=== PATIENT | female | born 1980 | race African-American/Black ===

== ENCOUNTER 2020-01-26 13:20 | Emergency (ER) | payer MEDICAID, SELFPAY ==
[2020-01-26 13:28] VITALS: BP 127/82; PULSE 113; RESP 18; TEMP 37.1; O2SAT 100
[2020-01-26 13:42] LABS: Basophils Absolute Auto 0.1 K/mm3 (0.0-0.1); Basophils Percent Auto 0.9 % (0.2-1.2); Eosinophils Absolute Auto 0.1 K/mm3 (0-0.3); Eosinophils Percent Auto 0.6 % (0-4.4); Hematocrit 45.5 % (37.0-47.0); Immature Granulocyte Absolute 0.03 K/mm3 (0.00-0.031); Immature Granulocyte Percent A 0.2 % (0-0.5); Lymphocytes Absolute Auto 4.97 K/mm3 (0.9-3.2); Lymphocytes Percent Auto 37.1 % (18.3-44.2); Mean Corpuscular Hemoglobin 28.9 pg (26-34); Mean Corpuscular Volume 87.7 fl (80-100); Mean Platelet Volume 9.8 fl (7.4-10.4); Monocytes Absolute Auto 0.6 K/mm3 (0.1-0.6); Monocytes Percent Auto 4.7 % (2.6-8.5); Neutrophils Absolute Auto 7.6 K/mm3 (1.3-6.7); Neutrophils Percent Auto 56.5 % (45.5-73.1); Platelet Count Result 363 k/mm3 (150-375); Red Blood Count 5.19 M/mm3 (4.2-5.4); Red Cell Distribution Width 13.4 % (11.5-14.5); White Blood Count 13.4 K/mm3 (4.5-10.0)
[2020-01-26 13:54] LABS: Alanine Aminotransferase 32 U/L (4-35); Albumin Level 4.5 g/dL (3.5-5.1); Alkaline Phosphatase 97 U/L (38-126); Aspartate Amino Transferase 30 U/L (14-36); Bilirubin,Total 0.4 mg/dL (0.2-1.3); Blood Urea Nitrogen 23 mg/dL (7-17); Calcium 8.7 mg/dL (8.4-10.2); Carbon Dioxide 21 mmol/L (22-30); Chloride 103 mmol/L (98-107); Estimated CRCL calculation 59 ml/min; Estimated Glomerular Filt Rate > 60; Glucose 136 mg/dL (65-105); Lipase 75 U/L (23-300); Potassium 4.6 mmol/L (3.4-5.0); Sodium 141 mmol/L (137-145)
--- NOTE | 2020-01-26 14:06 | ED.ABDPAIN ---
HPI - Abdominal Pain General Chief Complaint: Abdominal Pain Stated Complaint: abd pain r/t chronic pancreatitis Time Seen by Provider: 01/26/20 13:53 Source: patient and RN notes reviewed Mode of arrival: ambulatory Limitations: no limitations History of Present Illness HPI narrative: A 39 y/o female presents to the ED with constant epigastric ABD pain for the past 1.5 weeks. She states that she tried to get ahold of her PCP, Dr. Barajas, last week to get her pain medication refilled but that he was out of town. She notes that she called them again today and was told that the doctor might just be behind on his prescriptions , so she decided to come to the ED. She reports that the pain radiates into her back. She denies any diarrhea, fevers, chills, SOB, or CP. MD elicited complaint: abdominal pain Pertinent past history: other (pancreatitis) Onset (ago): week(s) (1.5) Pain Consistency: constant Location: epigastric Radiation: back Associated symptoms: denies other symptoms Related Data Allergies Allergy/AdvReac Type Severity Reaction Status Date / Time No Known Allergies Allergy Unknown Verified 09/23/19 03:22 No Known Allergies Allergy Uncoded 09/23/19 03:22 Review of Systems Review of Systems: All systems reviewed & are unremarkable except as noted in HPI and below Constitutional: Constitutional: Denies chills and Denies fever(s) Cardiovascular: Cardiovascular: Denies chest pain Respiratory: Respiratory: Denies dyspnea Gastrointestinal: Gastrointestinal: Reports abdominal pain (Epigastric) and Denies diarrhea PMFSH Past Medical History Medical History Anxiety Bronchitis C. difficile colitis Colitis Depression DM (diabetes mellitus) DVT (deep venous thrombosis) Endometriosis H/O: HTN (hypertension) History of angina Pancreatic cyst Pancreatitis PE (pulmonary thromboembolism) Surgical History Surgical History History of cholecystectomy History of hysterectomy Family History Family History Mother Hypertension Family history of lung cancer Father Patient's father is in good health Social History Social History Smoking packs per day: 1 Smoking cigarettes per day: 20.0 Smoking status: Heavy tobacco smoker Tobacco type: cigarettes Alcohol intake: never Gender identity (if verbalized by the patient): Female Exam Const: General: healthy appearing and no acute distress Nutritional Appearance: well nourished HENMT: Mouth: Yes lip normal and Yes moist mucous membranes Eyes: Conjunctivae: conjunctivae normal Pupils: Equal, round and reactive pupils present Resp: Effort & Inspection: normal respiratory effort Auscultation: clear to auscultation bilaterally Cardio: Rate: regular rate Rhythm: regular rhythm Heart sounds: no murmurs GI: GI Palp: Yes Soft to palpation and Yes Tenderness to palpation present (GI) (Epigastric) Auscultation: normal bowel sounds Back/Spine/Pelvis: Other: Full ROM. Skin: General skin exam: normal color, dry skin and other (warm) Neuro: General: patient oriented x3 (alert) Speech: normal speech Extrem: General: full ROM Psych: Mental Status: mental status grossly normal Affect: normal affect Course Vital Signs Vital signs: Vital Signs Temperature 37.1 C 01/26/20 13:28 Pulse Rate 113 H 01/26/20 13:28 Respiratory Rate 18 01/26/20 13:28 Blood Pressure 127/82 01/26/20 13:28 Pulse Oximetry 100 01/26/20 13:28 Temperature 37.1 C 01/26/20 13:28 Pulse Rate 113 H 01/26/20 13:28 Respiratory Rate 18 01/26/20 13:28 Blood Pressure 127/82 01/26/20 13:28 Pulse Oximetry 100 01/26/20 13:28 MDM - Abdominal Pain MDM Narrative Medical decision making narrative: Stormed out of ED while I was waiting for a call back from her PCP. Ulises
== END 2020-01-26 14:41 | disposition home or self-care (01) ==
LOC: ANHED 14:36
PROVIDERS: Emergency Medicine; Emergency Provider Emergency Medicine; PCP Internal Medicine Gastroenterology
DX: R10.13 Epigastric pain (principal); G89.29 Other chronic pain; Z86.718 Personal history of other venous thrombosis and embolism; N80.9 Endometriosis, unspecified; I10 Essential (primary) hypertension; Z86.711 Personal history of pulmonary embolism; F17.210 Nicotine dependence, cigarettes, uncomplicated
CPT/HCPCS: 36415; 80053; 83690; 85025; 99283

== ENCOUNTER 2020-04-04 21:37 | Emergency (ER) | payer MEDICAID, SELFPAY ==
--- NOTE | ~2020-04-04 | CT_ITS ---
EXAMINATION: CT abdomen pelvis w con DATE: 04/04/2020 22:44 INDICATION: Epigastric abdominal pain. TECHNIQUE: Computed tomography (CT) of the abdomen and pelvis was performed with 100 mL Omnipaque 350 intravenous contrast. Automated exposure control and iterative reconstruction technique were employe d. The dose-length product was 832.47 mGy-cm. COMPARISON: CT abdomen and pelvis 09/23/2019 FINDINGS: The visualized portions of the lung bases demonstrate mild atelectasis. No pleural effusion . The heart size is normal. No pericardial effusion. Pneumobilia is noted, likely secondary to sphinc terotomy. There are changes of cholecystectomy. The spleen is normal. The pancreas demonstrates scatt ered calcifications, pancreatic duct dilatation, and fat stranding around the pancreas, consistent wi th acute on chronic pancreatitis. The adrenal glands and kidneys are normal. There are no dilated loo ps of bowel. The appendix is normal. There are no pathologically enlarged lymph nodes. There is trace ascites. There is a small umbilical hernia containing fat. There is mild lumbar spondylosis. IMPRESSION: 1. Acute interstitial pancreatitis superimposed on chronic pancreatitis. Reviewed, dictated and finalized at location A.
[2020-04-04 21:41] VITALS: BP 170/100; PULSE 88; RESP 18; TEMP 36.9; O2SAT 100
--- NOTE | 2020-04-04 21:48 | ED.ABDPAIN ---
HPI - Abdominal Pain General Chief Complaint: Abdominal Pain Stated Complaint: abd pain Time Seen by Provider: 04/04/20 21:46 Source: patient Mode of arrival: ambulatory Limitations: no limitations History of Present Illness HPI narrative: Patient is a 39-year-old female who presents for evaluation of abdominal pain. Patient states she has a history of chronic pancreatitis, had 1 beer approximately 2 days ago, has had worsening upper abdominal pain since that time. Pain is described as sharp, stabbing in nature in the upper abdomen with radiation to the middle back. No chest pain, shoulder pain, shortness of breath, patient does report some nausea with a couple episodes of nonbloody, nonbilious emesis. No fever, chills, cough. Patient reports some loose stools, no blood present. She follows with Dr. Yadav, gastroenterology in [place]. Related Data Allergies Allergy/AdvReac Type Severity Reaction Status Date / Time No Known Allergies Allergy Unknown Verified 09/23/19 03:22 Review of Systems Review of Systems: Narrative: CONSTITUTIONAL: Denies fever, chills, or sweats. CARDIOVASCULAR: Denies chest pain, palpitations, or edema. RESPIRATORY: Denies cough or dyspnea. GASTROINTESTINAL: Reports abdominal pain, nausea, vomiting, diarrhea GENITOURINARY: Denies dysuria or hematuria. SKIN: Denies rash or itching. MUSCULOSKELETAL: Denies back pain, joint pain, or myalgia. NEUROLOGIC: Denies headache, numbness, or weakness. [facility] Past Medical History Medical History Anxiety Bronchitis C. difficile colitis Colitis Depression DM (diabetes mellitus) DVT (deep venous thrombosis) Endometriosis H/O: HTN (hypertension) History of angina Pancreatic cyst Pancreatitis PE (pulmonary thromboembolism) Surgical History Surgical History History of cholecystectomy History of hysterectomy Family History Family History Mother Hypertension Family history of lung cancer Father Patient's father is in good health Social History Social History Smoking packs per day: 1 Smoking cigarettes per day: 20.0 Smoking status: Heavy tobacco smoker Tobacco type: cigarettes Alcohol intake: never Gender identity (if verbalized by the patient): Female Exam Narrative: Exam Narrative: GENERAL: Awake, alert, conversant HEAD: Normocephalic, atraumatic. EYES: PERRLA and EOMI. ENT: Nares clear, no rhinorrhea or epistaxis. Mucous membranes moist. NECK: Supple. CHEST: No respiratory distress, breathing even and non labored HEART: Regular rate, sinus rhythm ABDOMEN:Non distended, tender in upper epigastrium, positive guarding, positive left lower quadrant tenderness, no rebound EXTREMITIES: Normal range of motion. No edema. SKIN: Warm, dry, no rash. NEURO:No focal deficits. Alert and oriented x3 Course Vital Signs Vital signs: Vital Signs Temperature 36.9 C 04/04/20 21:41 Pulse Rate 88 04/04/20 21:41 Respiratory Rate 18 04/04/20 21:41 Blood Pressure 170/100 H 04/04/20 21:41 Pulse Oximetry 100 04/04/20 21:41 Temperature 36.8 C 04/05/20 02:35 Pulse Rate 64 04/05/20 02:35 Respiratory Rate 18 04/05/20 02:35 Blood Pressure 124/86 04/05/20 02:35 Pulse Oximetry 100 04/05/20 02:35 Transfer Transfered to: [facility] Transportation: BLS Transfer rationale: Pancreatic duct stone Accepting physician: MD Kathrin MDM - Abdominal Pain MDM Narrative Medical decision making narrative: Patient presented for evaluation of epigastric abdominal pain. At the time of initial assessment, ABCs are intact and vital signs are stable. Physical examination is notable for upper abdominal pain as well as tenderness in the left lower quadrant. Mild guarding present. Laboratory results show no
[2020-04-04 21:53] LABS: Basophils Absolute Auto 0.1 K/mm3 (0.0-0.1); Basophils Percent Auto 0.5 % (0.2-1.2); Eosinophils Absolute Auto 0.3 K/mm3 (0-0.3); Hematocrit 42.5 % (37.0-47.0); Hemoglobin 13.7 g/dL (12.0-15.0); Immature Granulocyte Absolute 0.04 K/mm3 (0.00-0.031); Immature Granulocyte Percent A 0.3 % (0-0.5); Lymphocytes Absolute Auto 4.04 K/mm3 (0.9-3.2); Lymphocytes Percent Auto 30.6 % (18.3-44.2); Mean Corpuscular HGB Conc 32.2 g/dl (32-36); Mean Corpuscular Hemoglobin 28.8 pg (26-34); Mean Corpuscular Volume 89.5 fl (80-100); Mean Platelet Volume 9.9 fl (7.4-10.4); Monocytes Absolute Auto 0.8 K/mm3 (0.1-0.6); Monocytes Percent Auto 6.1 % (2.6-8.5); Neutrophils Percent Auto 60.5 % (45.5-73.1); Platelet Count Result 336 k/mm3 (150-375); Red Blood Count 4.75 M/mm3 (4.2-5.4); Red Cell Distribution Width 14.1 % (11.5-14.5); White Blood Count 13.2 K/mm3 (4.5-10.0)
[2020-04-04 21:55] LABS: Add Urine Microscopic? NO; Appearance Urine Clear (Clear); Bilirubin Urine Negative (Negative); Blood Urine Negative (Negative); Color Urine Straw (Yellow); Glucose Urine UA Negative (Negative); Ketones Urine Negative (Negative); Leukocyte Esterase Ur Negative LEU/UL (Negative); Nitrate Urine Negative (Negative); Protein Urine Negative (Negative); Specific Grav Ur 1.013 (1.001-1.035); Urobilinogen Urine Negative mg/dL (<2.0)
--- NOTE | 2020-04-04 21:56 | ECG_ITS ---
Measurements Intervals Frost Rate: 89 P: 52 NE: 161 QRS: 13 QRSD: 86 T: 50 QT: 361 QTc: 439 Interpretive Statements SINUS RHYTHM DELAYED PRECORDIAL R/S TRANSITION ST ELEVATION IN ANTERIOR LEADS- PROBABLY EARLY REPOLARIZATION BORDERLINE ECG Electronically Signed On 04-05-2020 7:01:44 CDT by Zane Prajapati D.O.
[2020-04-04 22:05] LABS: Alanine Aminotransferase 24 U/L (4-35); Albumin Level 4.5 g/dL (3.5-5.1); Alkaline Phosphatase 93 U/L (38-126); Aspartate Amino Transferase 20 U/L (14-36); Bilirubin,Total 0.4 mg/dL (0.2-1.3); Blood Urea Nitrogen 12 mg/dL (7-17); Calcium 9.2 mg/dL (8.4-10.2); Carbon Dioxide 26 mmol/L (22-30); Chloride 103 mmol/L (98-107); Estimated CRCL calculation 112 ml/min; Estimated Glomerular Filt Rate > 60; Glucose 112 mg/dL (65-105); Lipase 113 U/L (23-300); Potassium 3.8 mmol/L (3.4-5.0); Sodium 138 mmol/L (137-145)
[2020-04-04] MEDS: SODIUM CHLORIDE 0.9% IV 1,000 ML 999 ML IV CONT (22:09)
[2020-04-04] MEDS: ONDANSETRON INJ 4 MG/2 ML VIAL IV PUSH (22:09)
[2020-04-04] MEDS: MORPHINE SULFATE 4 MG/ML INJ IV PUSH (22:09)
[2020-04-04] MEDS: METOCLOPRAMIDE HCL INJ 10 MG/2 ML VIAL IV PUSH (23:35)
[2020-04-04] MEDS: HYDROMORPHONE HCL 1 MG/ML INJ 0.5 MG IV PUSH (23:36)
[2020-04-04 23:52] VITALS: BP 139/79; PULSE 101; RESP 18; TEMP 36.4; O2SAT 100
[2020-04-05] MEDS: HYDROMORPHONE HCL 1 MG/ML INJ IV PUSH (01:07)
[2020-04-05 01:09] VITALS: BP 137/98; PULSE 89; RESP 19; TEMP 36.8; O2SAT 99
[2020-04-05] MEDS: SODIUM CHLORIDE 0.9% IV 1,000 ML 150 ML IV CONT (02:12)
[2020-04-05 02:34] VITALS: BP 124/86; PULSE 94; RESP 18; O2SAT 99
[2020-04-05 02:35] VITALS: BP 124/86; PULSE 64; RESP 18; TEMP 36.8; O2SAT 100
[2020-04-05 03:39] VITALS: BP 122/86; PULSE 64; RESP 19; O2SAT 100
== END 2020-04-05 04:35 | disposition short-term general hospital (02) ==
PROVIDERS: Emergency Provider Emergency Medicine; PCP Internal Medicine Gastroenterology
DX: K86.89 Other specified diseases of pancreas (principal); E86.0 Dehydration; I10 Essential (primary) hypertension; E11.9 Type 2 diabetes mellitus without complications; N80.9 Endometriosis, unspecified; K86.1 Other chronic pancreatitis; F17.210 Nicotine dependence, cigarettes, uncomplicated; Z86.718 Personal history of other venous thrombosis and embolism; Z86.711 Personal history of pulmonary embolism
CPT/HCPCS: 36415; 74177; 80053; 81003; 81025; 83690; 85025; 93005; 96374; 96375; 99285; J0131; J1170; J2270; J2405; J2765; J3010; J7030; Q9967

== ENCOUNTER 2020-04-08 08:21 | Emergency (ER) | payer MEDICAID, SELFPAY ==
--- NOTE | ~2020-04-08 | US_ITS ---
EXAMINATION: US right upper quadrant DATE: 04/08/2020 10:49 INDICATION: Right upper quadrant abdominal pain. TECHNIQUE: Multiple grayscale and Doppler ultrasound images of the abdomen were obtained. COMPARISON: CT abdomen and pelvis 04/04/2020 FINDINGS: The visualized portions of the head and body of the pancreas are normal. The liver is marcus l without focal lesion. There is normal flow in main portal vein. The gallbladder is absent. The comm on duct is normal and measures 3 mm. IMPRESSION: 1. Normal right upper quadrant ultrasound status post cholecystectomy. Reviewed, dictated and finalized at location A.
[2020-04-08 08:25] VITALS: BP 154/87; PULSE 105; RESP 18; TEMP 36.7; O2SAT 100
--- NOTE | 2020-04-08 08:37 | ED.ABDPAIN ---
HPI - Abdominal Pain General Chief Complaint: Abdominal Pain Stated Complaint: Pain Time Seen by Provider: 04/08/20 08:29 Source: patient Mode of arrival: ambulatory Limitations: no limitations History of Present Illness HPI narrative: Patient is a 39-year-old female who presents to the emergency department with complaint of epigastric abdominal pain. Patient was seen in the emergency department 4 days ago for same pain. CT scan showed evidence of stone in the pancreatic duct. Patient was transferred to [facility] where she underwent ERCP with dilatation and stenting of the pancreatic duct by Dr. Wayne Beltran. Patient was advised she would have to return for stone removal at a later time. Patient was discharged home with Percocet. Patient had recurrent pain this morning which was not alleviated with her pain medication that she took approximately an hour and half ago. Patient is denying any nausea or vomiting at this time. MD elicited complaint: abdominal pain Pain Consistency: constant Location: epigastric Severity: similar to previous episodes Quality: sharp Radiation: back Exacerbating factors: other (Laying down) Relieving factors: other (Sitting upright) Treatments prior to arrival: prescription analgesics Related Data Allergies Allergy/AdvReac Type Severity Reaction Status Date / Time No Known Allergies Allergy Unknown Verified 09/23/19 03:22 Review of Systems Review of Systems: All systems reviewed & are unremarkable except as noted in HPI and below Constitutional: Constitutional: Denies fever(s) Gastrointestinal: Gastrointestinal: Reports abdominal pain, Denies nausea and Denies vomiting Musculoskeletal: Musculoskeletal: Reports back pain PMF Past Medical History Medical History (Updated 04/08/20 @ 13:14 by Shanae Fu MD) Anxiety Bronchitis C. difficile colitis Colitis Depression DM (diabetes mellitus) DVT (deep venous thrombosis) Endometriosis H/O: HTN (hypertension) History of angina Pancreatic cyst Pancreatitis PE (pulmonary thromboembolism) Presence of pancreatic duct stent Surgical History Surgical History History of cholecystectomy History of ERCP With placement of pancreatic duct stent History of hysterectomy Social History Social History Smoking packs per day: 1 Smoking cigarettes per day: 20.0 Smoking status: Heavy tobacco smoker Tobacco type: cigarettes Alcohol intake: never Gender identity (if verbalized by the patient): Female Exam Const: General: cooperative, no acute distress and alert Nutritional Appearance: obese Orientation/consciousness: patient oriented x3 Limitations: no limitations HENMT: Mouth: Yes lip normal and Yes moist mucous membranes Resp: Effort & Inspection: normal respiratory effort Auscultation: clear to auscultation bilaterally Cardio: Rate: regular rate Rhythm: regular rhythm GI: GI Palp: Yes Soft to palpation and Yes Tenderness to palpation present (GI) (Epigastric) Auscultation: normal bowel sounds Skin: General skin exam: normal color Neuro: General: patient oriented x3 Cognition (Neuro): normal cognition Speech: normal speech Extrem: General: normal to inspection, full ROM and no clubbing, cyanosis or edema Psych: Mental Status: mental status grossly normal Affect: normal affect Attitude: cooperative Course Course Emergency Course: Patient given numerous doses of pain medications to get her symptoms remotely under control. Arrangements made for patient to be transferred to [facility] for admission for pain management and reevaluation by home help aide who placed her pancreatic stent. Patient unfortunately is insistent on going home and packing a bag and driving by private car to [facility] rather than going by EMS to be a direct admission as was arranged. Patient requesting disch
[2020-04-08 08:52] LABS: Basophils Absolute Auto 0.1 K/mm3 (0.0-0.1); Basophils Percent Auto 0.7 % (0.2-1.2); Eosinophils Absolute Auto 0.2 K/mm3 (0-0.3); Eosinophils Percent Auto 1.8 % (0-4.4); Hematocrit 41.5 % (37.0-47.0); Hemoglobin 13.1 g/dL (12.0-15.0); Immature Granulocyte Absolute 0.05 K/mm3 (0.00-0.031); Immature Granulocyte Percent A 0.4 % (0-0.5); Lymphocytes Absolute Auto 2.91 K/mm3 (0.9-3.2); Lymphocytes Percent Auto 25.6 % (18.3-44.2); Mean Corpuscular HGB Conc 31.6 g/dl (32-36); Mean Corpuscular Hemoglobin 28.7 pg (26-34); Mean Corpuscular Volume 90.8 fl (80-100); Mean Platelet Volume 10.4 fl (7.4-10.4); Monocytes Absolute Auto 0.8 K/mm3 (0.1-0.6); Monocytes Percent Auto 6.6 % (2.6-8.5); Neutrophils Absolute Auto 7.4 K/mm3 (1.3-6.7); Neutrophils Percent Auto 64.9 % (45.5-73.1); Platelet Count Result 310 k/mm3 (150-375); Red Blood Count 4.57 M/mm3 (4.2-5.4); Red Cell Distribution Width 13.5 % (11.5-14.5); White Blood Count 11.4 K/mm3 (4.5-10.0)
[2020-04-08] MEDS: DICYCLOMINE HCL INJ 20 MG/2 ML VIAL IM (09:19)
[2020-04-08] MEDS: LACTATED RINGERS 1,000 ML 999 ML IV CONT (09:19)
[2020-04-08 09:28] LABS: Alanine Aminotransferase 18 U/L (4-35); Albumin Level 4.6 g/dL (3.5-5.1); Alkaline Phosphatase 97 U/L (38-126); Aspartate Amino Transferase 23 U/L (14-36); Bilirubin,Total 0.4 mg/dL (0.2-1.3); Blood Urea Nitrogen 7 mg/dL (7-17); Calcium 9.6 mg/dL (8.4-10.2); Carbon Dioxide 29 mmol/L (22-30); Chloride 97 mmol/L (98-107); Estimated CRCL calculation 111 ml/min; Estimated Glomerular Filt Rate > 60; Glucose 174 mg/dL (65-105); Lipase 41 U/L (23-300); Potassium 3.9 mmol/L (3.4-5.0); Sodium 135 mmol/L (137-145)
[2020-04-08 09:43] LABS: Add Urine Microscopic? YES; Appearance Urine Clear (Clear); Bacteria Urine Trace /hpf; Bilirubin Urine Negative (Negative); Blood Urine Negative (Negative); Color Urine Yellow (Yellow); Glucose Urine UA Negative (Negative); Ketones Urine Trace mg/dL (Negative); Leukocyte Esterase Ur Negative LEU/UL (Negative); Mucus Urine Rare /lpf; Nitrate Urine Negative (Negative); Protein Urine 1+ mg/dL (Negative); Specific Grav Ur 1.028 (1.001-1.035); Squamous Epithelial Cell Urine Many /hpf (Few)
[2020-04-08] MEDS: MORPHINE SULFATE 4 MG/ML INJ IV PUSH (10:16)
[2020-04-08] MEDS: KETOROLAC 30 MG/ML VIAL (*BKC) IV PUSH (11:11)
[2020-04-08 11:59] VITALS: BP 115/95; PULSE 87; RESP 18; O2SAT 100
== END 2020-04-08 13:28 | disposition left against medical advice (07) ==
PROVIDERS: Emergency Provider Emergency Medicine; PCP Internal Medicine Gastroenterology
DX: R10.13 Epigastric pain (principal); Z96.89 Presence of other specified functional implants; E11.9 Type 2 diabetes mellitus without complications; Z86.718 Personal history of other venous thrombosis and embolism; N80.9 Endometriosis, unspecified; I10 Essential (primary) hypertension; Z86.711 Personal history of pulmonary embolism; F17.210 Nicotine dependence, cigarettes, uncomplicated
CPT/HCPCS: 36415; 76705; 80053; 81001; 83690; 85025; 96361; 96365; 96372; 96375; 96376; 99284; J0131; J0500; J1885; J2270; J3010; J7120

== ENCOUNTER 2020-04-15 03:02 | Emergency (ER) | payer MEDICAID, SELFPAY ==
[2020-04-15 03:09] VITALS: BP 197/137; PULSE 52; RESP 16; TEMP 36.7; O2SAT 100
--- NOTE | 2020-04-15 03:26 | ED.ABDPAIN ---
HPI - Abdominal Pain General Chief Complaint: Abdominal Pain Stated Complaint: ABD PAIN Time Seen by Provider: 04/15/20 03:06 Source: patient and old records reviewed Mode of arrival: ambulatory Limitations: no limitations History of Present Illness HPI narrative: Patient is a 39-year-old female who presents to the emergency department with complaint of abdominal pain. Patient was initially seen in the emergency department on 04/04/2020 for abdominal pain. She was found to have a pancreatic duct stone. She was transferred to [facility] and underwent ERCP with dilatation and stenting of the pancreatic duct by Dr. Wayne Beltran. Patient subsequently presented to the emergency department on 04/08/2020 for recurrent pain. Arrangements were made to transfer patient to [facility], but patient opted to sign out AMA to go home pack herself a bag . Patient states she did end up going to [facility] as was instructed and is scheduled for stone removal next week. Patient states that they doubled her Percocet dose to take at home from 5 mg to 10 mg, but it is not helping. Patient denies nausea or vomiting. Patient drove herself to the emergency department from home. Patient is unable to tell me when the pain started back up again. MD elicited complaint: abdominal pain Pain Consistency: constant Location: epigastric Related Data Allergies Allergy/AdvReac Type Severity Reaction Status Date / Time No Known Allergies Allergy Unknown Verified 04/15/20 03:12 Review of Systems Review of Systems: All systems reviewed & are unremarkable except as noted in HPI and below Gastrointestinal: Gastrointestinal: Reports abdominal pain and Denies vomiting PMFSH Past Medical History Medical History Anxiety Bronchitis C. difficile colitis Colitis Depression DM (diabetes mellitus) DVT (deep venous thrombosis) Endometriosis H/O: HTN (hypertension) History of angina Pancreatic cyst Pancreatitis PE (pulmonary thromboembolism) Presence of pancreatic duct stent Social History Social History Smoking packs per day: 1 Smoking cigarettes per day: 20.0 Smoking status: Heavy tobacco smoker Tobacco type: cigarettes Alcohol intake: never Gender identity (if verbalized by the patient): Female Exam Const: General: cooperative, alert and in distress (Tearful, crying) Nutritional Appearance: overweight Orientation/consciousness: patient oriented x3 Limitations: no limitations HENMT: Mouth: Yes lip normal and Yes moist mucous membranes Resp: Effort & Inspection: normal respiratory effort Auscultation: clear to auscultation bilaterally Cardio: Rate: regular rate Rhythm: regular rhythm GI: GI Palp: Yes Soft to palpation and Yes Tenderness to palpation present (GI) (Diffuse, greatest in epigastric region) Auscultation: normal bowel sounds Skin: General skin exam: normal color Neuro: General: patient oriented x3 Cognition (Neuro): normal cognition Speech: normal speech Extrem: General: normal to inspection, full ROM and no clubbing, cyanosis or edema Psych: Mental Status: mental status grossly normal Affect: Sad affect present (Tearful, crying) Attitude: cooperative Course Course Emergency Course: Patient presents with persistent abdominal pain. Patient had been found to have a pancreatic duct stone and now has a stent in place. She states she is scheduled to have the stone removed on 04/20 when the appropriate equipment would be available at [facility] for the procedure she needs done. Patient is already on Percocet 10 mg at home and presented with breakthrough pain. Patient due to lack of improvement with narcotics was given adjunctive treatment with Haldol, Toradol, acetaminophen, and Bentyl. Patient reports her symptoms are improved with these medications and she would like to be discharged home.
[2020-04-15 03:36] LABS: Basophils Absolute Auto 0.1 K/mm3 (0.0-0.1); Basophils Percent Auto 0.8 % (0.2-1.2); Eosinophils Absolute Auto 0.3 K/mm3 (0-0.3); Eosinophils Percent Auto 2.5 % (0-4.4); Hematocrit 39.8 % (37.0-47.0); Hemoglobin 13.1 g/dL (12.0-15.0); Immature Granulocyte Absolute 0.04 K/mm3 (0.00-0.031); Immature Granulocyte Percent A 0.3 % (0-0.5); Lymphocytes Absolute Auto 4.47 K/mm3 (0.9-3.2); Lymphocytes Percent Auto 36.2 % (18.3-44.2); Mean Corpuscular HGB Conc 32.9 g/dl (32-36); Mean Corpuscular Hemoglobin 29.2 pg (26-34); Mean Corpuscular Volume 88.8 fl (80-100); Mean Platelet Volume 9.8 fl (7.4-10.4); Monocytes Absolute Auto 0.7 K/mm3 (0.1-0.6); Monocytes Percent Auto 5.9 % (2.6-8.5); Neutrophils Absolute Auto 6.7 K/mm3 (1.3-6.7); Neutrophils Percent Auto 54.3 % (45.5-73.1); Platelet Count Result 400 k/mm3 (150-375); Red Blood Count 4.48 M/mm3 (4.2-5.4); Red Cell Distribution Width 13.3 % (11.5-14.5); White Blood Count 12.3 K/mm3 (4.5-10.0)
[2020-04-15] MEDS: DICYCLOMINE HCL INJ 20 MG/2 ML VIAL IM (03:41)
[2020-04-15] MEDS: ONDANSETRON INJ 4 MG/2 ML VIAL IV PUSH (03:41)
[2020-04-15] MEDS: HALOPERIDOL LACTATE 5 MG/ML VIAL IM (03:41)
[2020-04-15] MEDS: KETOROLAC 30 MG/ML VIAL (*BKC) IV PUSH (03:41)
[2020-04-15] MEDS: LACTATED RINGERS 1,000 ML 999 ML IV CONT (03:41)
[2020-04-15 03:47] LABS: Alanine Aminotransferase 25 U/L (4-35); Albumin Level 4.5 g/dL (3.5-5.1); Alkaline Phosphatase 112 U/L (38-126); Aspartate Amino Transferase 27 U/L (14-36); Bilirubin,Total 0.3 mg/dL (0.2-1.3); Blood Urea Nitrogen 7 mg/dL (7-17); Calcium 9.3 mg/dL (8.4-10.2); Carbon Dioxide 24 mmol/L (22-30); Chloride 104 mmol/L (98-107); Estimated Glomerular Filt Rate > 60; Glucose 145 mg/dL (65-105); Lipase 22 U/L (23-300); Potassium 3.5 mmol/L (3.4-5.0); Sodium 136 mmol/L (137-145)
[2020-04-15 03:51] LABS: Ethanol < 10 mg/dL (<10)
--- NOTE | 2020-04-15 04:04 | PC.NURSE ---
This RN and GEETA Geiger entered pt room as per her request to speak with the electrical discharge machine operator. She was sitting upright, head down in her hands, quietly. No distress noted. Patient states she did not like the way she was treated from the minute she walked in. I told her she has been being seen and treated appropriately and taking the best possible care we can. The patient stated the person when she arrived was rude & the MD was at the intake area and she did not examine me right there. She did not approve that she did not enter the room after 5 people came into my room, and was rude to me . When this RN took her back to room1, GEETA Bender followed us in. At no time was there 5 people in her room. This patient from the time of arrival the patient was crying stating she had pain. She was taken immediately to ED room 1. She stated the icu clerk was alejandro, the male RN was alejandro ( GEETA Mcmanus) , but when I asked her what was said by these people she would not answer. She asked what meds were given to her, GEETA Bender, told her what she was given, and what the meds were for. She questioned the Haldol order, and I explained to her it was used for multiple things, and that include pain, nausea and vomiting. She kept interrupting me while I was attempting to explain all the meds to her again. so if i look this Haldol up , it will tell me it is for pain . I explained to her this is a medication that is used quite frequently. it is, this tells me it is for psychosis, is it because I was upset when I came in ? I told her no and again tried to explain but she kept interrupting me. I told her I would have the MD come explain the medication to her. Well you are rude, and I'll just go onto the next person. I put the side rails up. And this RN and GEETA Bender walked out of the room.
--- NOTE | 2020-04-15 04:05 | PC.NURSE ---
Pt requesting to talk to the charge nurse. Charge nurse Mildred spoke with patient.
--- NOTE | 2020-04-15 04:30 | PC.NURSE ---
Dr. Fu into patients room.
[2020-04-15 04:37] VITALS: BP 146/90; PULSE 74; RESP 16; O2SAT 100
== END 2020-04-15 04:49 | disposition home or self-care (01) ==
PROVIDERS: Emergency Provider Emergency Medicine; PCP Internal Medicine Gastroenterology
DX: K86.89 Other specified diseases of pancreas (principal); E11.9 Type 2 diabetes mellitus without complications; Z86.718 Personal history of other venous thrombosis and embolism; N80.9 Endometriosis, unspecified; I10 Essential (primary) hypertension; Z86.711 Personal history of pulmonary embolism; F17.211 Nicotine dependence, cigarettes, in remission
CPT/HCPCS: 36415; 80053; 80307; 83690; 85025; 96365; 96372; 96375; 99284; J0131; J0500; J1630; J1885; J2405; J7120

== ENCOUNTER 2020-11-21 06:51 | Emergency (ER) | payer OTHER, SELFPAY ==
--- NOTE | ~2020-11-21 | CT_ITS ---
EXAMINATION: CT abdomen pelvis w con EXAM DATE: 11/21/2020 08:49 INDICATION: hx of pancreatitis, epigastric pain . TECHNIQUE: Spiral CT of the abdomen and pelvis was performed following intravenous injection of 100 m L Omnipaque 350. Axial, coronal and sagittal images were reviewed. The dose-length product (DLP) fo r this examination was 493.32 mGy-cm. The exposure was tailored according to patient size (auto mA e xposure control), and iterative reconstruction (ASIR) was used as additional dose reduction technique . Comparison is made to prior examination from 04/04/2020. FINDINGS: Pancreatic calcifications indicating chronic pancreatitis. Liver, spleen, adrenal glands ar e unremarkable. There are cholecystectomy clips. Portal and splenic veins are patent. Kidneys enha nce symmetrically. There is no hydronephrosis. The uterus is not identified and has likely been mcdonald rgically resected. There is a left adnexal cystic lesion measuring 4 cm, probably hemorrhagic cyst. C onsider 6 week follow-up pelvic sonogram. The bladder is unremarkable. There is no retroperitoneal or pelvic lymphadenopathy. There is mild scattered arteriosclerotic disease. The appendix is normal. The stomach and small bowel are unremarkable. There is expected amount of c olonic stool. No free intraperitoneal gas. The heart is normal in size. There are no pericardial or pleural effusions. The lung bases are unremarkable. There are no osteoblastic or osteolytic les ions identified. IMPRESSION: 1. No acute intra-abdominal findings. 2. Left adnexal cystic lesion probably hemorrhagic cyst but consider follow-up 6 week ultrasound. 3. Chronic pancreatitis. Reviewed, dictated and finalized at location [facility]. [employer]
[2020-11-21 06:53] VITALS: BP 171/98; PULSE 93; RESP 18; TEMP 36.2; O2SAT 100
--- NOTE | 2020-11-21 07:06 | ED.ABDPAIN ---
HPI - Abdominal Pain General Chief Complaint: Abdominal Pain Stated Complaint: Abd pain, N/V/D Time Seen by Provider: 11/21/20 07:06 Source: patient Mode of arrival: ambulatory Limitations: no limitations History of Present Illness HPI narrative: Patient is a 40-year-old female with a history of pancreatitis who presents for evaluation of upper abdominal pain. Pain is aching, sharp in nature at times, cramping in nature without any associated radiation. No chest pain or shortness of breath. No fever. Patient reports vomiting and diarrhea over the past 3 days. States she has a history of pain such as this and has tried to manage it at home with oral Bentyl and promethazine without much improvement in her symptoms. Patient has a history of cholecystectomy. She denies any alcohol or drug use. She denies recent sick contacts. Related Data Home Medications Medication Instructions Recorded Confirmed lisinopril 11/21/20 oxycodone-acetaminophen 11/21/20 zolpidem 11/21/20 Allergies Allergy/AdvReac Type Severity Reaction Status Date / Time No Known Allergies Allergy Unknown Verified 11/21/20 06:56 Review of Systems Review of Systems: Narrative: CONSTITUTIONAL: Denies fever ENT: Denies rhinorrhea, congestion CARDIOVASCULAR: Denies chest pain, palpitations, or edema. RESPIRATORY: Denies cough or dyspnea. GASTROINTESTINAL: Reports abdominal pain, nausea, vomiting and diarrhea GENITOURINARY: Denies dysuria or hematuria. SKIN: Denies rash or itching. MUSCULOSKELETAL: Denies back pain, joint pain, or myalgia. NEUROLOGIC: Denies headache PMF Past Medical History Medical History (Updated 11/21/20 @ 09:12 by Rhoda Banuelos MD) Anxiety Bronchitis C. difficile colitis Colitis Depression DM (diabetes mellitus) DVT (deep venous thrombosis) Endometriosis H/O: HTN (hypertension) History of angina Pancreatic cyst Pancreatitis PE (pulmonary thromboembolism) Presence of pancreatic duct stent Surgical History Surgical History History of cholecystectomy History of ERCP With placement of pancreatic duct stent History of hysterectomy Family History Family History Mother Hypertension Family history of lung cancer Father Patient's father is in good health Social History Social History Smoking packs per day: 1 Smoking cigarettes per day: 20.0 Smoking status: Heavy tobacco smoker Tobacco type: cigarettes Alcohol intake: never Gender identity (if verbalized by the patient): Female Exam Narrative: Exam Narrative: GENERAL: Awake, alert, conversant HEAD: Normocephalic, atraumatic. EYES: PERRLA and EOMI. ENT: Nares clear, no rhinorrhea or epistaxis. Mucous membranes moist. NECK: Supple. CHEST: No respiratory distress, breathing even and non labored HEART: Regular rate, sinus rhythm ABDOMEN:Non distended, tender in epigastrium, no guarding, no rebound, non rigid, no lower abdominal tenderness EXTREMITIES: Normal range of motion. No edema. SKIN: Warm, dry, no rash. NEURO:No focal deficits. Alert and oriented x3 Course Vital Signs Vital signs: Vital Signs Temperature 36.2 C L 11/21/20 06:53 Pulse Rate 93 11/21/20 06:53 Respiratory Rate 18 11/21/20 06:53 Blood Pressure 171/98 H 11/21/20 06:53 Pulse Oximetry 100 11/21/20 06:53 Temperature 36.2 C L 11/21/20 06:53 Pulse Rate 88 11/21/20 09:20 Respiratory Rate 18 11/21/20 09:20 Blood Pressure 132/88 11/21/20 09:20 Pulse Oximetry 98 11/21/20 09:20 MDM - Abdominal Pain MDM Narrative Medical decision making narrative: Patient presented for evaluation of acute on chronic worsening abdominal pain. The time of assessment, ABCs are intact and vital signs are stable. Physical exam notable for epigastric tenderness which is reproducible on e
--- NOTE | 2020-11-21 07:13 | PC.NURSE ---
Two unsuccessful IV attempts. Roma CONNOR to try. Charge nurse aware.
[2020-11-21] MEDS: FAMOTIDINE 20 MG/2 ML VIAL IV PUSH (07:25)
[2020-11-21] MEDS: ONDANSETRON INJ 4 MG/2 ML VIAL IV PUSH (07:25)
[2020-11-21 07:27] LABS: Basophils Absolute Auto 0.1 K/mm3 (0.0-0.1); Basophils Percent Auto 0.7 % (0.2-1.2); Eosinophils Absolute Auto 0.2 K/mm3 (0-0.3); Eosinophils Percent Auto 2.3 % (0-4.4); Hematocrit 43.9 % (37.0-47.0); Immature Granulocyte Absolute 0.03 K/mm3 (0.00-0.031); Immature Granulocyte Percent A 0.3 % (0-0.5); Lymphocytes Absolute Auto 2.44 K/mm3 (0.9-3.2); Lymphocytes Percent Auto 24.8 % (18.3-44.2); Mean Corpuscular HGB Conc 31.9 g/dl (32-36); Mean Corpuscular Hemoglobin 26.4 pg (26-34); Mean Corpuscular Volume 82.7 fl (80-100); Mean Platelet Volume 9.7 fl (7.4-10.4); Monocytes Absolute Auto 0.5 K/mm3 (0.1-0.6); Monocytes Percent Auto 4.9 % (2.6-8.5); Neutrophils Absolute Auto 6.6 K/mm3 (1.3-6.7); Platelet Count Result 317 k/mm3 (150-375); Red Blood Count 5.31 M/mm3 (4.2-5.4); Red Cell Distribution Width 15.4 % (11.5-14.5); White Blood Count 9.8 K/mm3 (4.5-10.0)
[2020-11-21] MEDS: MORPHINE SULFATE (*CRX) 4 MG/ML INJ IV PUSH (07:29)
[2020-11-21] MEDS: SODIUM CHLORIDE 0.9% IV 1,000 ML 999 ML IV CONT (07:29)
[2020-11-21 07:39] LABS: Alanine Aminotransferase 19 U/L (4-35); Albumin Level 4.1 g/dL (3.5-5.1); Alkaline Phosphatase 140 U/L (38-126); Anion Gap 9 mmol/L (8-16); Aspartate Amino Transferase 28 U/L (14-36); Bilirubin,Total 0.6 mg/dL (0.2-1.3); Blood Urea Nitrogen 11 mg/dL (7-17); Calcium 9.1 mg/dL (8.4-10.2); Carbon Dioxide 25 mmol/L (22-30); Chloride 104 mmol/L (98-107); Estimated CRCL calculation 87 ml/min; Estimated Glomerular Filt Rate > 60; Glucose 113 mg/dL (65-105); Potassium 4.4 mmol/L (3.4-5.0); Sodium 138 mmol/L (137-145)
[2020-11-21 07:40] LABS: Add Urine Microscopic? YES; Appearance Urine Clear (Clear); Bacteria Urine Trace /hpf; Bilirubin Urine Negative (Negative); Blood Urine Negative (Negative); Color Urine Yellow (Yellow); Glucose Urine UA Negative (Negative); Ketones Urine Negative (Negative); Leukocyte Esterase Ur Negative LEU/UL (Negative); Mucus Urine Rare /lpf; Nitrate Urine Negative (Negative); Protein Urine 1+ mg/dL (Negative); RBC Urine 0-2 /hpf (0-2); Specific Grav Ur 1.026 (1.001-1.035); Squamous Epithelial Cell Urine Moderate /hpf (Few); Urobilinogen Urine Negative mg/dL (<2.0)
[2020-11-21 08:00] LABS: Lipase < 10 U/L (23-300)
[2020-11-21 08:02] VITALS: BP 143/97; PULSE 89; RESP 14; O2SAT 98
[2020-11-21] MEDS: METOCLOPRAMIDE HCL INJ 10 MG/2 ML VIAL IV PUSH (08:07)
[2020-11-21] MEDS: HYDROmorphone HCL INJ (*CRX) 1 MG/ML SYR 0.5 MG IV PUSH (08:07)
--- NOTE | 2020-11-21 08:40 | PC.NURSE ---
Patient to CT
[2020-11-21 09:00] VITALS: BP 132/88; PULSE 77; RESP 19; O2SAT 97
[2020-11-21 09:20] VITALS: BP 132/88; PULSE 88; RESP 18; O2SAT 98
== END 2020-11-21 09:21 | disposition home or self-care (01) ==
PROVIDERS: Emergency Provider Emergency Medicine; PCP Internal Medicine Gastroenterology
DX: R10.13 Epigastric pain (principal); F41.9 Anxiety disorder, unspecified; F32.9 Major depressive disorder, single episode, unspecified; E11.9 Type 2 diabetes mellitus without complications; Z86.718 Personal history of other venous thrombosis and embolism; N80.9 Endometriosis, unspecified; I10 Essential (primary) hypertension; Z86.711 Personal history of pulmonary embolism; F17.210 Nicotine dependence, cigarettes, uncomplicated; N94.89 Other specified conditions associated with female genital organs and menstrual cycle; K86.1 Other chronic pancreatitis
CPT/HCPCS: 36415; 74177; 80053; 81001; 83690; 85025; 96361; 96374; 96375; 99284; J1170; J2270; J2405; J2765; J7030; Q9967

== ENCOUNTER 2020-12-26 17:08 | Inpatient (IN) | payer OTHER, SELFPAY ==
--- NOTE | ~2020-12-26 | CT_ITS ---
EXAMINATION: CT abdomen pelvis w con DATE: 12/26/2020 18:54 INDICATION: Epigastric abdominal pain. History of pancreatitis. TECHNIQUE: Computed tomography (CT) of the abdomen and pelvis was performed with 100 cc Omnipaque 350 intravenous contrast. Automated exposure control and iterative reconstruction technique were employe d. Exam dose: 385.76 mGy-cm total exam DLP. COMPARISON: 11/21/2020 CT abdomen pelvis FINDINGS: Minimal atelectasis at the lung bases. Normal heart size. No pericardial or pleural effusion. Status post cholecystectomy. No hepatic or splenic mass lesion. No splenomegaly. No bile duct dilatat ion. There is atrophy of the pancreas. There are multiple pancreatic calcifications consistent with chroni c pancreatitis. There is mild pancreatic duct dilatation. No apparent pancreatic mass lesion. The adrenal glands are unremarkable. No renal mass lesion or urinary tract calculus or hydroureteronephrosis. The urinary bladder is relat ively evacuated. Normal caliber and atherosclerotic calcification of the abdominal aorta and iliac arteries. No intrap eritoneal or retroperitoneal or pelvic mass lesion or adenopathy or ascites. Normal appendix. No bowel obstruction, bowel wall thickening, pneumatosis or intraperitoneal free air. Small fat-containing umbilical hernia. IMPRESSION: Chronic pancreatitis Status post cholecystectomy Small sliding hiatal hernia. Reviewed, dictated and finalized at [facility]. Reviewed, dictated and finalized at location A. 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
[2020-12-26 17:09] VITALS: BP 149/94; PULSE 96; RESP 20; TEMP 36.4; O2SAT 100
[2020-12-26 17:32] LABS: Add Urine Microscopic? NO; Appearance Urine Clear (Clear); Bilirubin Urine Negative (Negative); Blood Urine Negative (Negative); Color Urine Straw (Yellow); Glucose Urine UA Negative (Negative); Ketones Urine Negative (Negative); Leukocyte Esterase Ur Negative LEU/UL (Negative); Nitrate Urine Negative (Negative); Protein Urine Negative (Negative); Specific Grav Ur 1.012 (1.001-1.035); Urobilinogen Urine Negative mg/dL (<2.0)
--- NOTE | 2020-12-26 18:09 | ED.ABDPAIN ---
HPI - Abdominal Pain General Chief Complaint: Abdominal Pain <Annette Salinas MD - Last Filed: 12/29/20 07:07> Stated Complaint: abdominal pain <Annette Salinas MD - Last Filed: 12/29/20 07:07> Time Seen by Provider: 12/26/20 17:16 <Annette Salinas MD - Last Filed: 12/29/20 07:07> Source: patient <Annette Salinas MD - Last Filed: 12/29/20 07:07> Mode of arrival: ambulatory <Annette Salinas MD - Last Filed: 12/29/20 07:07> Limitations: no limitations <Annette Salinas MD - Last Filed: 12/29/20 07:07> History of Present Illness HPI narrative: PAtient is an female with history of chronic pancreatitis, chronic epigastric pain who presents for evaluation of worsening pain. She states she has been on pain management with percocet for a year . She was doing well until 1 month ago. She has been taking percocet 10 mg/325 daily as needed for her pain. She reports she has pain daily but her pain has been controllable until 1 week ago. She has been taking percocet every 6 hours without relief. She reports constant epigastric pain radiating to her back. She reports intermittent nausea, vomiting and diarrhea. She denies any fever or chills. She denies sob, cough , sore throat. She has an appointment with Dr. Sergio Barajas tomorrow. <Annette Salinas MD - Last Filed: 12/29/20 07:07> Related Data Home Medications: Home Medications Medication Instructions Recorded Confirmed oxycodone-acetaminophen 1 tablet PO Q4-6H PRN 11/21/20 12/26/20 zolpidem 10 mg PO HS 11/21/20 12/26/20 metformin 500 mg PO BID 12/26/20 12/26/20 <Annette Salinas MD - Last Filed: 12/29/20 07:07> Allergies/Adverse Reactions: Allergies Allergy/AdvReac Type Severity Reaction Status Date / Time No Known Allergies Allergy Unknown Verified 12/26/20 17:11 <Annette Salinas MD - Last Filed: 12/29/20 07:07> Review of Systems Review of Systems: All systems reviewed & are unremarkable except as noted in HPI and below <Annette Salinas MD - Last Filed: 12/29/20 07:07> Constitutional: Constitutional: Denies chills and Denies fever(s) <Annette Salinas MD - Last Filed: 12/29/20 07:07> Gastrointestinal: Gastrointestinal: Reports abdominal pain, Reports nausea and Reports vomiting <Annette Salinas MD - Last Filed: 12/29/20 07:07> Genitourinary: Genitourinary: Denies nocturia and Denies flank pain <Annette Salinas MD - Last Filed: 12/29/20 07:07> Musculoskeletal: Musculoskeletal: Denies back pain <Annette Salinas MD - Last Filed: 12/29/20 07:07> PMF Past Medical History Medical History: Medical History (Updated 12/29/20 @ 07:07 by Annette Salinas MD) Anxiety Bronchitis C. difficile colitis Colitis Dehydration Depression Diabetes mellitus DM (diabetes mellitus) DVT (deep venous thrombosis) Endometriosis H/O: HTN (hypertension) History of angina Hypokalemia Nausea and vomiting in adult Pancreatic cyst Pancreatitis PE (pulmonary thromboembolism) Presence of pancreatic duct stent <Annette Salinas MD - Last Filed: 12/29/20 07:07> Surgical History Surgical History: Surgical History History of cholecystectomy History of ERCP With placement of pancreatic duct stent History of hysterectomy <Annette Salinas MD - Last Filed: 12/29/20 07:07> Family History Family History: Family History Mother Hypertension Family history of lung cancer Father Patient's father is in good health <Annette Salinas MD - Last Filed: 12/29/20 07:07> Social History Social History: Social History Smoking packs per day: 1 Smoking cigarettes per day: 20.0 Smoking status: Heavy tobacco smoker Tobacco type: cigarettes Alcohol intake: never Substance use: never Ge
[2020-12-26 18:10] LABS: Basophils Absolute Auto 0.1 K/mm3 (0.0-0.1); Basophils Percent Auto 0.7 % (0.2-1.2); Eosinophils Absolute Auto 0.1 K/mm3 (0-0.3); Eosinophils Percent Auto 0.8 % (0-4.4); Hematocrit 43.6 % (37.0-47.0); Hemoglobin 14.2 g/dL (12.0-15.0); Immature Granulocyte Absolute 0.03 K/mm3 (0.00-0.031); Immature Granulocyte Percent A 0.2 % (0-0.5); Lymphocytes Absolute Auto 3.42 K/mm3 (0.9-3.2); Lymphocytes Percent Auto 27.5 % (18.3-44.2); Mean Corpuscular HGB Conc 32.6 g/dl (32-36); Mean Corpuscular Hemoglobin 27.6 pg (26-34); Mean Corpuscular Volume 84.7 fl (80-100); Mean Platelet Volume 9.4 fl (7.4-10.4); Monocytes Absolute Auto 0.8 K/mm3 (0.1-0.6); Monocytes Percent Auto 6.7 % (2.6-8.5); Neutrophils Percent Auto 64.1 % (45.5-73.1); Platelet Count Result 347 k/mm3 (150-375); Red Blood Count 5.15 M/mm3 (4.2-5.4); Red Cell Distribution Width 14.7 % (11.5-14.5); White Blood Count 12.4 K/mm3 (4.5-10.0)
[2020-12-26] MEDS: METOCLOPRAMIDE HCL INJ 10 MG/2 ML VIAL IV PUSH (18:14)
[2020-12-26] MEDS: HYDROmorphone HCL INJ (*CRX) 1 MG/ML SYR IV PUSH ×3 (18:14→21:46)
[2020-12-26] MEDS: LACTATED RINGERS 1,000 ML 999 ML IV CONT (18:14)
[2020-12-26 18:23] LABS: Alanine Aminotransferase 24 U/L (4-35); Albumin Level 4.3 g/dL (3.5-5.1); Alkaline Phosphatase 117 U/L (38-126); Anion Gap 5 mmol/L (8-16); Aspartate Amino Transferase 24 U/L (14-36); Bilirubin,Total 0.7 mg/dL (0.2-1.3); Blood Urea Nitrogen 8 mg/dL (7-17); Calcium 9.2 mg/dL (8.4-10.2); Carbon Dioxide 28 mmol/L (22-30); Chloride 107 mmol/L (98-107); Estimated CRCL calculation 75 ml/min; Estimated Glomerular Filt Rate > 60; Glucose 95 mg/dL (65-105); Potassium 3.1 mmol/L (3.4-5.0); Sodium 140 mmol/L (137-145)
[2020-12-26 18:32] LABS: Lipase < 10 U/L (23-300)
--- NOTE | 2020-12-26 18:40 | ECG_ITS ---
Measurements Intervals [place] Rate: 71 P: 59 UT: 173 QRS: 0 QRSD: 84 T: -36 QT: 422 QTc: 460 Interpretive Statements SINUS RHYTHM POSSIBLE LEFT ATRIAL ENLARGEMENT DELAYED PRECORDIAL R/S TRANSITION T WAVE ABNORMALITY IN ANT/INF LEADS- CONSIDER ISCHEMIA ABNORMAL ECG Electronically Signed On 12-27-2020 7:05:27 SECONDARY ART TEACHER by Zane Prajapati D.O.
[2020-12-26 18:59] VITALS: BP 155/105; PULSE 75; RESP 18; O2SAT 97
[2020-12-26] MEDS: KETOROLAC 30 MG/ML VIAL (*BKC) IV PUSH (20:31)
[2020-12-26] MEDS: HALOPERIDOL LACTATE 5 MG/ML VIAL 2 MG IV PUSH (20:31)
--- NOTE | 2020-12-26 20:40 | PM.IMHP ---
H&P: HPI History of Present Illness Date/Time: 12/26/20 20:40 Chief Complaint: epigastric pain Narrative: This is a 40 year old female with known history of chronic pancreatitis for the past 4 years who presented to the hospital [facility] with a complaint of worsening epigastric abdominal pain for the past five days. No one has been able to tell her what the cause of her chronic pancreatitis is and she denies any history of significant alcohol abuse in the past. She has undergone a cholecystectomy as well as ERCP, pancreatic stent placement and retrieval. She is normally on percocet for her chronic abdominal pain although she reports that this pain over the past few days has become unbearable. Associated symptoms include nausea, vomiting, and diarrhea although she denies any fevers, chills, chest pain, cough, sore throat, shortness of breath, wheezing, dysuria, hematuria, or rectal bleeding. She is known to normally follow GI at [facility]. CT abd/pelvis was obtained [facility] in the ER which only showed chronic pancreatitis. We have been asked to admit the patient to the hospital for pain control. No other complaints. Review of Systems Review of Systems: All systems reviewed & are unremarkable except as noted in HPI and below PMFSH Past Medical History Medical History Anxiety Bronchitis C. difficile colitis Colitis Depression Diabetes mellitus DM (diabetes mellitus) DVT (deep venous thrombosis) Endometriosis H/O: HTN (hypertension) History of angina Pancreatic cyst Pancreatitis PE (pulmonary thromboembolism) Presence of pancreatic duct stent Surgical History Surgical History History of cholecystectomy History of ERCP With placement of pancreatic duct stent History of hysterectomy Family History Family History Mother Hypertension Family history of lung cancer Father Patient's father is in good health Social History Social History Smoking packs per day: 1 Smoking cigarettes per day: 20.0 Smoking status: Heavy tobacco smoker Tobacco type: cigarettes Alcohol intake: never Substance use: never Gender identity (if verbalized by the patient): Female Spiritual care concerns: No Meds Home Medications and Allergies Home Medications Medication Instructions Recorded Confirmed Type oxycodone-acetaminophen 1 tablet PO Q4-6H PRN 11/21/20 12/26/20 History zolpidem 10 mg PO HS 11/21/20 12/26/20 History metformin 500 mg PO BID 12/26/20 12/26/20 History Allergies Allergy/AdvReac Type Severity Reaction Status Date / Time No Known Allergies Allergy Unknown Verified 12/26/20 17:11 Vital Signs Vital Signs - 24 hr 12/26/20 17:09 12/26/20 18:59 Temperature 36.4 C Pulse Rate 96 75 Respiratory Rate 20 18 Blood Pressure 149/94 H 155/105 H Pulse Oximetry 100 97 Exam Const: General: alert and awake Nutritional Appearance: well nourished Orientation/consciousness: patient oriented x3 HENMT: Head: normal to inspection General nose exam: Normal external nose present Face and sinus: normal facial exam Mouth: Yes Normal oral and palatal mucosa present and Yes oropharynx normal Eyes: Pupils: Equal, round and reactive pupils present EOM: EOMs intact bilaterally Neck: Neck: supple and no JVD Thyroid: thyroid normal Lymphatic: lymphadenopathy not noted Resp: Effort & Inspection: normal respiratory effort Auscultation: clear to auscultation bilaterally Cardio: Rate: regular rate Rhythm: regular rhythm Heart sounds: no murmurs GI: Inspection: normal to inspection GI Palp: Yes abdominal tenderness (epigastric++ ) Auscultation: normal bowel sounds Rectal Exam: deferred Skin: General skin exam: normal color and no rashes or lesions noted Neuro: General: p
[2020-12-26 21:08] VITALS: BP 137/93; PULSE 75; RESP 18; O2SAT 100
[2020-12-26 21:11] VITALS: BP 137/93; PULSE 72; RESP 20; TEMP 36.7; O2SAT 100
[2020-12-26] MEDS: LACTATED RINGERS 1,000 ML 125 ML IV CONT (21:22)
[2020-12-26 21:57] VITALS: BP 136/94; PULSE 68; RESP 16; TEMP 36.4; O2SAT 100; BMI 29.2
--- NOTE | 2020-12-26 22:14 | PC.NURSE ---
This patient, Leighann Rodriguez, was admitted to Medical Room 246-. Patient/family oriented to hospital policies and general routines including ID bracelet, bed and alarms, visiting hours, pain management, procedures, bathroom and other care routines, personal items, smoking policy, room service/diet, and visiting hours. Information on how to activate the Rapid Response Team has been discussed. Patient/Family are encouraged to report perceived risks to care and to ask questions if they do not understand what they are told or what they should do.
[2020-12-27] MEDS: HYDROmorphone HCL INJ (*CRX) 1 MG/ML SYR IV PUSH ×8 (01:54→22:26)
[2020-12-27 05:35] LABS: Basophils Absolute Auto 0.1 K/mm3 (0.0-0.1); Basophils Percent Auto 0.9 % (0.2-1.2); Eosinophils Absolute Auto 0.3 K/mm3 (0-0.3); Eosinophils Percent Auto 2.4 % (0-4.4); Hemoglobin 12.7 g/dL (12.0-15.0); Immature Granulocyte Absolute 0.03 K/mm3 (0.00-0.031); Immature Granulocyte Percent A 0.3 % (0-0.5); Lymphocytes Absolute Auto 3.73 K/mm3 (0.9-3.2); Lymphocytes Percent Auto 36.1 % (18.3-44.2); Mean Corpuscular HGB Conc 32.6 g/dl (32-36); Mean Corpuscular Volume 82.8 fl (80-100); Mean Platelet Volume 9.9 fl (7.4-10.4); Monocytes Absolute Auto 0.7 K/mm3 (0.1-0.6); Monocytes Percent Auto 7.2 % (2.6-8.5); Neutrophils Absolute Auto 5.5 K/mm3 (1.3-6.7); Neutrophils Percent Auto 53.1 % (45.5-73.1); Platelet Count Result 305 k/mm3 (150-375); Red Blood Count 4.71 M/mm3 (4.2-5.4); Red Cell Distribution Width 14.6 % (11.5-14.5); White Blood Count 10.3 K/mm3 (4.5-10.0)
[2020-12-27] MEDS: LACTATED RINGERS 1,000 ML 125 ML IV CONT ×2 (05:45→13:11)
[2020-12-27 05:49] LABS: Anion Gap 2 mmol/L (8-16); Blood Urea Nitrogen 7 mg/dL (7-17); Calcium 8.6 mg/dL (8.4-10.2); Carbon Dioxide 31 mmol/L (22-30); Chloride 106 mmol/L (98-107); Cholesterol 206 mg/dL (0-200); Estimated CRCL calculation 88 ml/min; Estimated Glomerular Filt Rate > 60; Glucose 94 mg/dL (65-105); HDL Direct 46 mg/dL; Potassium 3.3 mmol/L (3.4-5.0); Sodium 139 mmol/L (137-145); Triglycerides 118 mg/dL (<150)
[2020-12-27 05:59] LABS: LDL Cholesterol Direct 142 mg/dL
[2020-12-27 06:00] VITALS: BP 140/90; PULSE 66; RESP 16; TEMP 36.6; O2SAT 100
[2020-12-27 07:42] LABS: Glucose Point of Care 105 (65-105)
[2020-12-27] MEDS: NICOTINE (*PBKC) 21 MG PATCH 1 PATCH TRANSDERM (08:05)
--- NOTE | 2020-12-27 11:02 | PM.IMPN ---
Progress Note: A&P Assessment and Plan (1) Pancreatitis: Code(s): K85.90 - Acute pancreatitis without necrosis or infection, unspecified Status: Acute Assessment and Plan: Appears to have intractable pain from known chronic pancreatitis; on PO narcotics at home and follows pain specialist. Lipase normal, CT abd/pelvis shows chronic pancreatitis. Nausea and pain has improved some overnight. Willing to advance diet today, but hesitant to try PO pain meds today but willing to possibly try PO meds tomorrow. GI consulted and appreciate input Will try CLD today and advance diet as tolerated tonight/tomorrow Pain control with IV pain meds; transition to PO pain meds tomorrow if tolerating diet and pain improved Zofran prn for nausea Continue light IV fluids for now Monitor tonight; hopefully discharge next 1-2 days if symptoms improve She agrees to f/u with [facility] and pain specialist (2) Diabetes mellitus: Qualifiers: Diabetes mellitus complication status: without complication Diabetes mellitus ocean transportation intermediary insulin use: without ocean transportation intermediary use Diabetes mellitus type: type 2 Qualified Code(s): E11.9 - Type 2 diabetes mellitus without complications Code(s): E11.9 - Type 2 diabetes mellitus without complications Status: Chronic Assessment and Plan: BGL 100s this morning Continue Accuchecks, SSI coverage, hypoglycemic protocol. Resume oral hypoglycemic agents when appropriate. (3) H/O: HTN (hypertension): Code(s): Z86.79 - Personal history of other diseases of the circulatory system Status: Chronic Assessment and Plan: stable. m Monitor blood pressure. Will consider PRN IV antihypertensives as needed. (4) Tobacco dependence: Code(s): F17.200 - Nicotine dependence, unspecified, uncomplicated Status: Chronic Assessment and Plan: Smoking cessation encouraged Nicotine patch Subjective Date/time seen: 12/27/20 11:02 Interval history: Patient is a 40 yo F with history of chronic pancreatitis (follows [facility] GI), DMII, anxiety depression and past VTE who is seen in follow up for intractable pain from chronic pancreatitis. Patient states she feels somewhat better today. Still a bit nauseous but willing to advanced diet today as her pain has somewhat improved. Pain in epigastric region; typical for her chronic pancreatitis. She is hesitant in trying PO pain medications at this moment but is hoping to try tomorrow if she is tolerating her diet today. No other complaints at the moment. Denies f/c/s, headaches, dizziness, lightheadedness, cp/palpitations, sob/cough, changes in BMs, dysuria, hematuria, cloudy urine, calf pain/swelling. Of note she has a pain specialist she follows who manages her pain medications for chronic pancreatitis; she understands she needs to follow up with them as soon as possible after discharge. Review of Systems Review of Systems: All systems reviewed & are unremarkable except as noted in HPI and below Exam Narrative: Exam Narrative: General: Patient resting in semi-rodas's bed in no acute distress. HEENT: Normocephalic, EOMI, oral mucosa moist. Cardiovascular: Rate and rhythm are regular. No notable murmur, rub, or gallop. Respiratory: Lungs clear to auscultation all smith. Non-labored breathing. Abdomen: Soft, ttp epigastric and RUQ regions, non-distended, bowel sounds present. Extremities: Peripheral pulses intact. No edema. NTTP b/l calves Neuro: No focal neurological deficits. Speech is clear. Objective Data Vital Signs Vital Signs: Last Vital Signs Temp 97.8 F 12/27/20 06:00 Pulse 66 12/27/20 06:00 Resp 16 12/27/20 06:00 BP 140/90 12/27/20 06:00 Pulse Ox 100 12/27/20 06:00 Intake/Output Intake/Output: Intake & Output 12/24/20 12/25/20
[2020-12-27 11:11] VITALS: BMI 29.2
--- NOTE | 2020-12-27 12:50 | PC.NURSE ---
1250 pt ate a chicken quesidilla for lunch after diet being advanced and is c/o return in pain, reviewed with pt that she may have over done it with the diet
[2020-12-27] MEDS: MORPHINE SULFATE (*CRX) 2 MG/ML INJ IV PUSH ×2 (13:13→21:40)
--- NOTE | 2020-12-27 13:20 | PCNSR ---
On 12/27/20, the student,Shanice Winston, provided care and completed [facility] documentation on this patient. I have reviewed the student's documentation and agree with the findings.
--- NOTE | 2020-12-27 13:50 | PC.NURSE ---
reviewed with pt that MD reduced diet back to liquids due to her having pain she states I wish he wouldn't have done that and is requesting diludid
--- NOTE | 2020-12-27 14:24 | WPDGICN ---
Assessment and Plan Assessment and plan (1) Acute on chronic pancreatitis: Code(s): K85.90 - Acute pancreatitis without necrosis or infection, unspecified; K86.1 - Other chronic pancreatitis Status: Acute Assessment and Plan: exacerbation of chronic pancreatitis and here with dehydration and vomiting she is feeling better now, advance diet as tolerated, continue pain meds probably tomorrow she could go home she is also interested to establish care with local GI, I told her that she can see me in office in 4-6 weeks (2) Nausea and vomiting in adult: Code(s): R11.2 - Nausea with vomiting, unspecified Status: Acute (3) Dehydration: Code(s): E86.0 - Dehydration Status: Acute Assessment and Plan: treated and better (4) Hypokalemia: Code(s): E87.6 - Hypokalemia Status: Acute Assessment and Plan: repleted, no more vomiting or diarrhea, feeling better GI Consult Note Consult date/time: 12/27/20 14:24 Reason for consult: nausea, vomiting, chronic pancreatitis HPI: Leighann Rodriguez is a 40 year old female with history of chronic pancreatitis for the past 4 years with several episodes, finally underwent cholecystectomy as well as ERCP with pancreatic stent placement and retrieval more than a year ago which she thinks helped with symptoms (it was done at [facility] in [facility]), she also is seeing pain management for her chronic pancreatitis, prescribed percocet which she takes 1-2 week based on symptoms. She came to ER with worsening epigastric abdominal pain for last five days but also nausea, vomiting, and diarrhea. She tried to control symptoms at home but because ongoing symptoms she came in and was admitted to the hospital. CT abd/pelvis only showed chronic pancreatitis. She is tolerating liquid diet, less abdominal pain and feeling better. She has not had any alcoholic drink for more than 2 years (used to be socially drinker only). K3.1, liver enzymes, TG level and lipase normal. She says that had colonoscopy about a year ago just before her ercp. Last hospitalization for pancreatitis more than a year ago. Review of Systems Constitutional: Constitutional: Denies headache(s) and Denies weakness Eyes: Eyes: Denies blurry vision ENT: Reports Normal hearing present, Denies headache(s) and Denies neck pain Cardiovascular: Cardiovascular: Denies chest pain and Denies dyspnea Respiratory: Respiratory: Denies dyspnea Gastrointestinal: Gastrointestinal: Reports no additional gastrointestinal complaints Genitourinary: Genitourinary: Denies dysuria Musculoskeletal: Musculoskeletal: Denies neck pain Integumentary/Breasts: Skin/Breast: Denies dry skin Neurologic: Reports Normal hearing present, Denies headache(s) and Denies weakness Psychiatric: Psychiatric: Denies anxiety Endocrine: Endocrine: Denies change in body appearance Hematologic/Lymphatic: Hematologic/Lymphatic: Denies easy bleeding Allergic/Immunologic: Allergic/Immunologic: Denies urticaria PMFSH Past Medical History Medical History Anxiety Bronchitis C. difficile colitis Colitis Depression Diabetes mellitus DM (diabetes mellitus) DVT (deep venous thrombosis) Endometriosis H/O: HTN (hypertension) History of angina Pancreatic cyst Pancreatitis PE (pulmonary thromboembolism) Presence of pancreatic duct stent Surgical History Surgical History History of cholecystectomy History of ERCP With placement of pancreatic duct stent History of hysterectomy Family History Family History Mother Hypertension Family history of lung cancer Father Patient's father is in good health Social History Social History Smoking packs per day: 1 Smoking cigarettes per day: 20.0 Smoking
[2020-12-27 14:30] VITALS: BP 127/84; PULSE 84; RESP 16; TEMP 36.9; O2SAT 100
[2020-12-27 16:00] VITALS: BP 125/82; PULSE 82; RESP 16; TEMP 36.9; O2SAT 100
[2020-12-27 18:15] LABS: Glucose Point of Care 93 (65-105)
[2020-12-27 20:00] VITALS: PULSE 82; RESP 16; O2SAT 100
[2020-12-27] MEDS: ZOLPIDEM TARTRATE (*CRX) 5 MG TABLET 10 MG PO (20:14)
[2020-12-27 20:55] LABS: Glucose Point of Care 112 (65-105)
--- NOTE | 2020-12-27 21:41 | PC.NURSE ---
Pt states Merlyn is not holding her for the 3 hours.
[2020-12-27 22:00] VITALS: BP 141/94; PULSE 84; RESP 20; TEMP 36.9; O2SAT 97
[2020-12-27] MEDS: KETOROLAC 30 MG/ML VIAL (*BKC) IV PUSH (23:48)
[2020-12-28] VITALS: BP 142/92; PULSE 68; RESP 18; TEMP 36.6; O2SAT 100
[2020-12-28] MEDS: LACTATED RINGERS 1,000 ML 75 ML IV CONT (01:27)
[2020-12-28] MEDS: HYDROmorphone HCL INJ (*CRX) 1 MG/ML SYR IV PUSH ×5 (01:27→14:16)
[2020-12-28 04:47] LABS: Hematocrit 40.1 % (37.0-47.0); Hemoglobin 13.3 g/dL (12.0-15.0); Mean Corpuscular HGB Conc 33.2 g/dl (32-36); Mean Corpuscular Hemoglobin 27.2 pg (26-34); Mean Platelet Volume 9.5 fl (7.4-10.4); Platelet Count Result 271 k/mm3 (150-375); Red Blood Count 4.89 M/mm3 (4.2-5.4); Red Cell Distribution Width 14.4 % (11.5-14.5); White Blood Count 10.2 K/mm3 (4.5-10.0)
[2020-12-28 05:02] LABS: Anion Gap 6 mmol/L (8-16); Blood Urea Nitrogen 3 mg/dL (7-17); Calcium 8.6 mg/dL (8.4-10.2); Carbon Dioxide 33 mmol/L (22-30); Chloride 102 mmol/L (98-107); Estimated CRCL calculation 102 ml/min; Estimated Glomerular Filt Rate > 60; Glucose 122 mg/dL (65-105); Magnesium 1.6 mg/dL (1.6-2.3); Sodium 141 mmol/L (137-145)
[2020-12-28 05:16] VITALS: BP 147/98; PULSE 68; RESP 18; TEMP 36.4; O2SAT 100
[2020-12-28 06:41] LABS: Glucose Point of Care 140 (65-105)
[2020-12-28] MEDS: MAGNESIUM SULF 2 GM/WATER 50ML 2 GM/50 ML BAG IVPB (09:24)
[2020-12-28 09:51] VITALS: O2SAT 100
--- NOTE | 2020-12-28 11:06 | PM.IMPN ---
Progress Note: A&P Assessment and Plan (1) Pancreatitis: Code(s): K85.90 - Acute pancreatitis without necrosis or infection, unspecified Status: Acute Assessment and Plan: Appears to have intractable pain from known chronic pancreatitis; on chronic PO narcotics at home [place] 10/325mg and follows pain specialist. Lipase normal, CT abd/pelvis shows chronic pancreatitis. She is feeling better today after having increased pain/nausea last night. GI Evaluated the patient and feels comfortable for discharge once stable to follow up with 4-6 weeks. Will slowly advance her diet today. Consider discharge if feeling better if tolerating Low Fat diet this evening. She would like to know about her pain medications, if she should continue her [place] 10/325mg or switch to Oxycodone. I explained that she has a pain specialist to follow up with after discharge to discuss pain medications usp. She understands she needs to follow up with them as soon as possible after discharge. Pain control with PO pain meds, and decrease IV Dilaudid use if she is discharging. Zofran prn for nausea Discontinue light IV fluids Monitor tonight; hopefully discharge next 1-2 days if symptoms improve She agrees to f/u with Dr. Kaushik HUANG vs her Current GI at [facility] and pain specialist (2) Diabetes mellitus: Qualifiers: Diabetes mellitus complication status: without complication Diabetes mellitus termite treater helper insulin use: without usp use Diabetes mellitus type: type 2 Qualified Code(s): E11.9 - Type 2 diabetes mellitus without complications Code(s): E11.9 - Type 2 diabetes mellitus without complications Status: Chronic Assessment and Plan: BGL 100s this morning Continue Accuchecks, SSI coverage, hypoglycemic protocol. Resume oral hypoglycemic agents when appropriate. (3) H/O: HTN (hypertension): Code(s): Z86.79 - Personal history of other diseases of the circulatory system Status: Chronic Assessment and Plan: Elevated this morning, BP 147/98. Other pressures have been normal. Will need follow up with PCP and BP monitoring. Monitor blood pressure. (4) Tobacco dependence: Code(s): F17.200 - Nicotine dependence, unspecified, uncomplicated Status: Chronic Assessment and Plan: Smoking cessation encouraged Nicotine patch Time Spent With Patient Time with patient: 25 - 35 minutes Subjective Date/time seen: 12/28/20 11:06 Interval history: Patient is a 40 yo F with history of chronic pancreatitis (follows [facility] GI), DMII, anxiety depression and past VTE who is seen in follow up for intractable pain from chronic pancreatitis. Date of Service 12/28/20: Patient reports feeling much better at this time. She would like some mashed potatoes at this time, but she is currently NPO since her pain and nausea returned yesterday after eating dinner. She reports pain at a 6/10. She denies any chest pain, SOB, fever, chills, cough, nausea, vomiting, leg swelling, leg pain, or any other issues at this time. 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 Appears comfortable. In no acute distress. Skin: No jaundice or cyanosis. Good skin turgor. Neck: Full range of motion. Supple. Respiratory: Lungs are clear to auscultation bilaterally. No bony chest wall tenderness. Cardiovascular: The heart has a regular rate and rhythm without murmur. Lower extremities: No lower extremity edema. Distal pulses are easily palpated. No calf tenderness to palpation. Gastrointestinal: Reports tenderness to palpation, but no rebound or guarding. The abdome
--- NOTE | 2020-12-28 12:15 | PC.NURSE ---
rate of K rider decreased due to burning at IV site will continue to assess
--- NOTE | 2020-12-28 12:28 | PC.NURSE ---
reported to pt that diet can be advanced at 1600, she states I don't think you understand that I am hungry. I am about ready to sign myself out of here and go get something to eat. I explained to pt that yesterday after diet was advanced she had increased pain and that diet had to be reduced so today the plan is to take it slower.
[2020-12-28] MEDS: HYDROcodone/acetaminophen (*CRX) 10-325 MG TABLET 1 TAB PO (13:21)
[2020-12-28 13:55] LABS: Glucose Point of Care 233 (65-105)
[2020-12-28 14:00] VITALS: BP 145/87; PULSE 77; RESP 18; TEMP 36.7; O2SAT 100
[2020-12-28 14:05] VITALS: BP 145/87; PULSE 77; RESP 18; TEMP 36.7; O2SAT 100
--- NOTE | 2020-12-28 14:46 | WPDGIPROGNO ---
Progress Note: A&P Assessment and Plan (1) Acute on chronic pancreatitis: Code(s): K85.90 - Acute pancreatitis without necrosis or infection, unspecified; K86.1 - Other chronic pancreatitis Status: Acute Assessment and Plan: feeling better, advance diet as tolerated and probably go home later today she will call her pain specialist to get more narcotics which she has been taking for some time now she can follow up in office in 4-6 weeks (2) Nausea and vomiting in adult: Code(s): R11.2 - Nausea with vomiting, unspecified Status: Acute Assessment and Plan: resolved (3) Tobacco dependence: Code(s): F17.200 - Nicotine dependence, unspecified, uncomplicated Status: Chronic Subjective Date/time seen: 12/28/20 14:46 Interval history: had some pain yesterday but now feeling better and would like to eat more consistent diet and hope to go home Review of Systems Review of Systems: All systems reviewed & are unremarkable except as noted in HPI and below Exam Const: General: comfortable and no acute distress HENMT: General nose exam: Normal nares present Eyes: General: appearance normal, both eyes and all related structures Neck: Neck: no JVD Resp: Auscultation: clear to auscultation bilaterally Cardio: Rate: regular rate Rhythm: regular rhythm GI: Inspection: non-distended GI Palp: Yes Soft to palpation, Yes Tenderness to palpation present (GI) (mild ttp in epigastric, no guarding or rebound) and No Guarding due to palpation present (GI) Percussion: No Fluid wave present Auscultation: normal bowel sounds Skin: General skin exam: normal color Neuro: General: gait normal Speech: normal speech Extrem: General: normal to inspection Psych: Mental Status: mental status grossly normal Objective Data Vital Signs Vital Signs: Vital Signs - 24 hr 12/27/20 16:00 12/27/20 20:00 12/27/20 22:00 Temperature 98.5 F 98.4 F Pulse Rate 82 82 84 Respiratory Rate 16 16 20 Blood Pressure 125/82 141/94 H Pulse Oximetry 100 100 97 12/28/20 00:00 12/28/20 05:16 12/28/20 09:51 Temperature 97.9 F 97.6 F Pulse Rate 68 68 Respiratory Rate 18 18 Blood Pressure 142/92 H 147/98 H Pulse Oximetry 100 100 100 12/28/20 14:00 Temperature 98.0 F Pulse Rate 77 Respiratory Rate 18 Blood Pressure 145/87 H Pulse Oximetry 100 Intake/Output Intake/Output: Intake & Output 12/25/20 12/26/20 12/27/20 12/28/20 23:59 23:59 23:59 23:59 Intake Total 1000 3720 240 Output Total 1550 Balance 1000 2170 240 Meds/Results Medications: Active Medications Generic Name Dose Route Start Last Admin Trade Name Freq PRN Reason Stop Dose Admin Hydrocodone Bitart/Acetaminophen 1 tab 12/28/20 12:14 12/28/20 13:21 Hydrocodone/Acetaminophen (*Crx) 10-325 Mg Tablet PO 1 tab Q4H PRN Administration Pain Rated 7-10 Hydrocodone Bitart/Acetaminophen 1 tab 12/28/20 12:14 Hydrocodone/Acetaminophen (*Crx) 7.5-325 Mg Tablet PO Q4H PRN Pain Rated 4-6 Dextrose 12.5 gm 12/26/20 22:53 Dextrose 50% 25 Gm/50 Ml Syringe IV PUSH PRN PRN Hypoglycemia Protocol Glucagon 1 mg 12/26/20 22:53 Glucagon For Inj 1 Mg Vial IM PRN PRN Hypoglycemia Protocol Hydromorphone HCl 1 mg 12/28/20 10:30 12/28/20 14:16 Hydromorphone Hcl Inj (*Crx) 1 Mg/Ml Syr IV PUSH 1 mg Q4H PRN Administration Pain Rated 7-10 Dextrose 1,000 mls @ 100 mls/hr 12/26/20 22:53 Dextrose 5% 1,000 Ml IVPB PRN PRN Hypoglycemia Protocol Nicotine 1 patch 12/26/20 22:55 12/27/20 08:05 Nicotine (*Pbkc) 21 Mg Patch TRANSDERM 1 patch Q24H FARIBA Administration Ondansetron HCl 4 mg 12/27/20 11:17 Ondansetron Inj 4 Mg/2 Ml Vial IV PUSH Q6H PRN Nausea And Vomiting Zolpidem Tartrate 10 mg 12/27/20 21:00 12/27/20 20:14 Zolpidem Tartrate (*Crx) 5 Mg Tablet PO 10 mg HS FARIBA Administration Rad
--- NOTE | 2020-12-28 16:45 | PM.DS ---
DS: Admitting Diagnosis Admitting Diagnosis Admitting Diagnosis: Abdominal pain DS: Discharge Diagnosis Discharge Diagnosis (1) Pancreatitis: Code(s): K85.90 - Acute pancreatitis without necrosis or infection, unspecified Status: Acute Assessment and Plan: Appears to have intractable pain from known chronic pancreatitis; on chronic PO narcotics at home Durham 10/325mg and follows pain specialist. Lipase normal, CT abd/pelvis shows chronic pancreatitis. She is feeling better today after having increased pain/nausea last night. GI Evaluated the patient and feels comfortable for discharge once stable to follow up with 4-6 weeks. Will slowly advance her diet today. Consider discharge if feeling better if tolerating Low Fat diet this evening. She is feeling much better, diet was advanced without any issues and patient is requesting to be discharged. She was cleared by GI for discharge. She would like to know about her pain medications, if she should continue her Durham 10/325mg or switch to Oxycodone. I explained that she has a pain specialist to follow up with after discharge to discuss pain medications intermission coordinator. She understands she needs to follow up with them as soon as possible after discharge. She agrees to f/u with Dr. Kaushik HUANG vs her Current GI at [facility] and pain specialist (2) Diabetes mellitus: Qualifiers: Diabetes mellitus complication status: without complication Diabetes mellitus intermission coordinator insulin use: without intermediate use Diabetes mellitus type: type 2 Qualified Code(s): E11.9 - Type 2 diabetes mellitus without complications Code(s): E11.9 - Type 2 diabetes mellitus without complications Status: Chronic Assessment and Plan: BGL 120s this morning Resume oral hypoglycemic agents upon discharge (3) H/O: HTN (hypertension): Code(s): Z86.79 - Personal history of other diseases of the circulatory system Status: Chronic Assessment and Plan: Elevated this morning, BP 145/87. Other pressures have been normal. Will need follow up with PCP and BP monitoring. (4) Tobacco dependence: Code(s): F17.200 - Nicotine dependence, unspecified, uncomplicated Status: Chronic Assessment and Plan: Smoking cessation encouraged Nicotine patch DS: Summary Hospital Course Reason for hospitalization: Patient is a 40-year-old woman with a history of chronic pancreatitis who sees pain management and is on chronic Durham [id number] to for her pain, who presented to emergency room with worsening epigastric pain for the past 5 days. Her pain was unbearable even given her oral Durham. She had associated symptoms of nausea, vomiting, diarrhea. Initial vitals showed she was afebrile, non tachycardic, normal respiratory rate, blood pressure slightly elevated 149/94, and normal oxygenation on room air. Initial labs showed slight leukocytosis, normal neutrophil count, hypokalemia at 3.1, normal renal function, normal liver enzymes, normal lipase. CT abdomen pelvis showed chronic pancreatitis, status post cholecystectomy. She was admitted to the hospital for IV pain medications, placed NPO overnight, IV fluid hydration and consult to GI specialist. During her admission she received pain medications with improvement of her symptoms, she was able to advance her diet as tolerated without any issues. Prior to discharge she was feeling well and was instructed to follow-up with her tumbling barrel painter with any adjustments that would be needed for her chronic pancreatitis. Follow-up with GI for further evaluation as outpatient. Hospital Course: See above Status at Discharge Cognitive/behavioral status at discharge: Stable, improved. Time Spent with Patient Time attestation
[2020-12-29 00:37] LABS: SARS-CoV-2 RNA PCR Negative
== END 2020-12-28 17:23 | disposition home or self-care (01) | DRG 282 ==
LOC: ANHED 20:39 → ANH2MED 20:50
PROVIDERS: Emergency Medicine; Physician Assistant; Admitting Provider Family Medicine; Emergency Provider General Practice; PCP Internal Medicine Gastroenterology; Visit Provider Internal Medicine
DX: K85.90 Acute pancreatitis without necrosis or infection, unspecified (principal); K86.1 Other chronic pancreatitis; Z20.822 Contact with and (suspected) exposure to COVID-19; F17.210 Nicotine dependence, cigarettes, uncomplicated; E11.9 Type 2 diabetes mellitus without complications; E87.6 Hypokalemia; E86.0 Dehydration; Z79.84 Long term (current) use of oral hypoglycemic drugs; Z79.891 Long term (current) use of opiate analgesic; Z86.711 Personal history of pulmonary embolism; Z86.718 Personal history of other venous thrombosis and embolism; Z86.79 Personal history of other diseases of the circulatory system; Z90.49 Acquired absence of other specified parts of digestive tract; Z90.710 Acquired absence of both cervix and uterus
CPT/HCPCS: 36415; 74177; 80048; 80053; 80061; 81003; 81025; 82948; 83690; 83735; 85025; 85027; 93005; 96361; 96365; 96374; 96375; 96376; 99285; A9270; C9803; G0378; G0379; J1170; J1630; J1885; J2270; J2765; J3475; J3480; J7120; Q9967; U0003; U0005

== ENCOUNTER 2021-03-12 14:09 | Emergency (ER) | payer OTHER, SELFPAY ==
--- NOTE | ~2021-03-12 | US_ITS ---
EXAMINATION: US venous doppler [facility] DATE: 03/12/2021 14:47 INDICATION: Left lower limb pain and swelling TECHNIQUE: Grayscale ultrasound images without and with compression and Doppler ultrasound images of the left lower extremity veins were obtained. COMPARISON: None. FINDINGS: The visualized portions of left common femoral vein, profunda (deep) femoral vein, femoral vein, popl iteal vein, peroneal veins, posterior tibial veins, gastrocnemius vein and greater saphenous vein out flow are patent. IMPRESSION: 1. No deep venous thrombosis in the left lower limb. Reviewed, dictated and finalized at location A.
[2021-03-12 14:11] VITALS: BP 135/79; PULSE 110; RESP 20; TEMP 36.6; O2SAT 100
--- NOTE | 2021-03-12 15:00 | PC.NURSE ---
called pt to go back to a room- no answer.
--- NOTE | 2021-03-12 15:47 | PC.NURSE ---
No answer when called back to room. this is second call with no answer. Patient left ED prior to being seen.
== END 2021-03-12 15:47 | disposition left against medical advice (07) ==
PROVIDERS: Emergency Provider Emergency Medicine; PCP Internal Medicine Gastroenterology
DX: M79.605 Pain in left leg (principal)
CPT/HCPCS: 93971; 99199

== ENCOUNTER 2021-11-24 19:46 | Emergency (ER) | payer OTHER, SELFPAY ==
[2021-11-24 19:54] VITALS: BP 129/82; PULSE 92; RESP 16; TEMP 36.6; O2SAT 97
--- NOTE | 2021-11-24 21:02 | ED.EYEPROB ---
HPI - Eye Problem General Chief complaint: Eye Problems Stated complaint: pink eye Source: patient and RN notes reviewed Limitations: no limitations History of Present Illness HPI Narrative: The vaccinated patient, does not wear eyeglasses or contact lenses, presents with pinkeye. Patient states she has atraumatic, gradual onset of left eye redness. Symptoms are mild, worse with blinking; no photophobia, FB sensation, URI?sinusitis but she did have a cough last week. Related Data Home Medications Medication Instructions Recorded Confirmed zolpidem 10 mg PO HS 11/21/20 11/24/21 clonazepam 0.5 mg PO PRN PRN 11/24/21 11/24/21 lisinopril 10 mg PO DAILY 11/24/21 11/24/21 Allergies Allergy/AdvReac Type Severity Reaction Status Date / Time No Known Allergies Allergy Unknown Verified 11/24/21 19:51 Review of Systems Review of Systems: General/Constitutional: No weight loss,fever Eyes: REPORTS redness,discharge Ears/Nose/Throat: No: Epistaxis,ear discharge Respiratory: Denies: Hemoptysis Gastrointestinal: No Vomiting, Bleeding-rectal Skin: No Lumps, eruption Neurologic: No Focal Weakness,Sz Hematologic: Denies: Petechiae/Purpura Psychiatric: No: Suicida ideationl All Other Systems: Reviewed and Negative [facility] Past Medical History Medical History (Updated 11/24/21 @ 21:17 by Joe Simpson MD) Anxiety Bronchitis C. difficile colitis Colitis Dehydration Depression Diabetes mellitus DM (diabetes mellitus) DVT (deep venous thrombosis) Endometriosis H/O: HTN (hypertension) History of angina Hypokalemia Nausea and vomiting in adult Pancreatic cyst Pancreatitis PE (pulmonary thromboembolism) Presence of pancreatic duct stent Surgical History Surgical History History of cholecystectomy History of ERCP With placement of pancreatic duct stent History of hysterectomy Family History Family History Mother Hypertension Family history of lung cancer Father Patient's father is in good health Social History Social History Smoking packs per day: 1 Smoking cigarettes per day: 20.0 Smoking status: Heavy tobacco smoker Tobacco type: cigarettes Alcohol intake: never Substance use: never Gender identity (if verbalized by the patient): Female Spiritual care concerns: No Comments At time of signature, agree with nursing past medical, surgical, social and family history. There is no relevant family history pertinent to the presenting complaint Exam Narrative: General Appearance: Well appearing, Well nourished, No distress EYE: PERRLA [id number] normal, EOMI (lens normal), Normal corneas anterior chamber deep, Conjunctiva injection OD Ears: External ear normal, Auditory canal normal Nose: Normal nose, Nares clear Mouth/Throat: Normal appearing, Normal lips, Supple, No adenopathy Respiratory: Airway patent, No respiratory distress Skin: Warm, Dry Neurological: A&O x3, CN II-X intact Psychiatric: Normal mood, Normal affect Course Vital Signs Vital signs: Vital Signs Temperature 97.8 F 11/24/21 19:54 Pulse Rate 92 11/24/21 19:54 Respiratory Rate 16 11/24/21 19:54 Blood Pressure 129/82 11/24/21 19:54 Pulse Oximetry 97 11/24/21 19:54 Temperature 97.8 F 11/24/21 19:54 Pulse Rate 92 11/24/21 19:54 Respiratory Rate 16 11/24/21 19:54 Blood Pressure 129/82 11/24/21 19:54 Pulse Oximetry 97 11/24/21 19:54 Discharge Plan Discharge Clinical Impression: Conjunctivitis Qualifiers: Conjunctivitis type: acute Acute conjunctivitis type: unspecified Laterality: left Qualified Code(s): H10.32 - Unspecified acute conjunctivitis, left eye Patient Disposition: Home, Self-Care Condition: Stable Instructions: Antibiotic Form, Conjunctivitis (ED) Pre
== END 2021-11-24 21:09 | disposition home or self-care (01) ==
PROVIDERS: Emergency Provider Emergency Medicine; PCP Internal Medicine Gastroenterology
DX: H10.32 Unspecified acute conjunctivitis, left eye (principal); F17.210 Nicotine dependence, cigarettes, uncomplicated; E11.9 Type 2 diabetes mellitus without complications; Z86.718 Personal history of other venous thrombosis and embolism; N80.9 Endometriosis, unspecified; I10 Essential (primary) hypertension
CPT/HCPCS: 99213; G0463

== ENCOUNTER 2022-06-25 00:11 | Emergency (ER) | payer OTHER, SELFPAY ==
[2022-06-25] VITALS (17 sets, daily range): BP systolic 141–147; BP diastolic 97–108; PULSE 72–91; RESP 13–22; TEMP 37.2; O2SAT 98–100
--- NOTE | ~2022-06-25 | CT_ITS ---
EXAMINATION: CT abdomen pelvis w con DATE: 06/25/2022 02:52 INDICATION: Epigastric pain, nausea and vomiting TECHNIQUE: Computed tomography (CT) of the abdomen and pelvis was performed with 100 mL Omnipaque-300 intravenous contrast. Automated exposure control and iterative reconstruction technique were employe d. The dose-length product was 532.43 mGy-cm. COMPARISON: 532.43 FINDINGS: Mild bibasilar atelectasis. Heart size is normal. No pericardial or pleural effusion. Cholecystectomy clips the gallbladder fossa. Decreased attenuation of the liver relative to the spleen suggestive of diffuse hepatic steatosis although specificities decreased in the presence of intravenous contrast. Numerous small irregular calcific lesions scattered throughout the pancreas with unchanged dilation o f the main pancreatic duct at the tail of the pancreas likely sequela of chronic pancreatitis. No obs tructing masses or peripancreatic inflammatory stranding to suggest acute interstitial pancreatitis. Bilateral adrenal glands and left kidney are normal. Small region of cortical scarring at the lower p ole of the right kidney which could represent sequela of prior infection or infarction. Bowels includ ing the appendix are normal. Bladder is normal. The uterus is not identified and has likely been surg ically resected. No free intraperitoneal gas or fluid. No pathologically enlarged abdominal or pelvic lymphadenopathy. Very small fat-containing umbilical hernia. Bones are unremarkable. IMPRESSION: 1. No acute intra-abdominal/pelvic process. 2. Stigmata of chronic pancreatitis without adjacent inflammatory stranding to suggest acute intersti tial pancreatitis but given the provided history of epigastric pain would correlate with amylase and lipase levels to exclude occult acute interstitial pancreatitis. Reviewed, dictated and finalized at location A. IMPRESSION: 1. No acute intra-abdominal/pelvic process. 2. Stigmata of chronic pancreatitis without adjacent inflammatory stranding to suggest acute interstitial pancreatitis but given the provided history of epiga stric pain would correlate with amylase and lipase levels to exclude occult acu te interstitial pancreatitis.
--- NOTE | 2022-06-25 00:52 | ED.ABDPAIN ---
HPI - Abdominal Pain General Chief Complaint: Abdominal Pain Stated Complaint: +hep A, abd pain Time Seen by Provider: 06/25/22 00:16 History of Present Illness HPI narrative: Patient is a 42-year-old female with a history of pancreatitis complaining of upper abdominal pain, 8 out of 10, sharp, radiating to back accompanied by nausea and vomiting that started 4 days ago. Patient states that she was diagnosed with hepatitis a 6 weeks ago. Patient denies chest pain, shortness of breath, diarrhea, urinary symptoms, fever or chills. Related Data Home Medications Medication Instructions Recorded Confirmed zolpidem 10 mg tablet 10 mg PO HS 11/21/20 11/24/21 clonazepam 0.5 mg tablet 0.5 mg PO PRN PRN Anxiety 11/24/21 11/24/21 lisinopril 10 mg tablet 10 mg PO DAILY 11/24/21 11/24/21 Allergies Allergy/AdvReac Type Severity Reaction Status Date / Time No Known Allergies Allergy Unknown Verified 06/25/22 00:36 Review of Systems Review of Systems: All systems reviewed & are unremarkable except as noted in HPI and below Constitutional: Constitutional: Denies body ache(s), Denies chills, Denies excessive sweating, Denies fatigue, Denies fever(s), Denies headache(s), Denies lethargy, Denies malaise, Denies weakness and Denies weight loss Eyes: Eyes: Denies blurry vision, Denies change in vision and Denies loss of vision ENT: Denies dizziness, Denies ear discharge, Denies headache(s), Denies lip swelling, Denies epistaxis, Denies nasal congestion, Denies neck pain, Denies throat swelling and Denies tongue swelling Cardiovascular: Cardiovascular: Denies chest pain, Denies chest pain at rest, Denies chest pain with activity, Denies diaphoresis, Denies rapid heart rate, Denies edema, Denies irregular heart rhythm, Denies lightheadedness, Denies palpitations, Denies dyspnea and Denies dyspnea on exertion Respiratory: Respiratory: Denies chest congestion, Denies cough, Denies hemoptysis, Denies dyspnea and Denies dyspnea on exertion Gastrointestinal: Gastrointestinal: Denies melena, Denies hematochezia, Denies diarrhea and Denies hematemesis Musculoskeletal: Musculoskeletal: Denies abnormal gait, Denies deformity, Denies joint swelling, Denies limited range of motion, Denies neck pain and Denies numbness Neurologic: Denies Abnormal speech present, Denies abnormal gait, Denies confusion, Denies dizziness, Denies headache(s), Denies focal weakness, Denies loss of vision, Denies numbness, Denies Other visual disturbances, Denies Sensory deficit (Neuro) and Denies weakness Psychiatric: Psychiatric: Denies confusion, Denies depression, Denies auditory hallucinations, Denies homicidal ideation and Denies suicidal ideation Endocrine: Endocrine: Denies cold intolerance, Denies excessive sweating, Denies fatigue, Denies heat intolerance and Denies palpitations Hematologic/Lymphatic: Hematologic/Lymphatic: Denies easy bleeding and Denies easy bruising Allergic/Immunologic: Allergic/Immunologic: Denies lip swelling, Denies throat swelling and Denies tongue swelling PMFSH Past Medical History Medical History Anxiety Bronchitis C. difficile colitis Colitis Dehydration Depression Diabetes mellitus DM (diabetes mellitus) DVT (deep venous thrombosis) Endometriosis H/O: HTN (hypertension) History of angina Hypokalemia Nausea and vomiting in adult Pancreatic cyst Pancreatitis PE (pulmonary thromboembolism) Presence of pancreatic duct stent Surgical History Surgical History History of cholecystectomy History of ERCP With placement of pancreatic duct stent History of hysterectomy Family History Family History Mother Hypertension Family history of lung cancer Father Patient's father is in good health Social History Social History (Reviewed 06/25/22 @ 00:56 by Zohreh
[2022-06-25 01:05] LABS: Appearance Urine Clear (Clear); Bilirubin Urine 1+ (Negative); Blood Urine Negative (Negative); Color Urine Yellow (Yellow); Glucose Urine UA Negative (Negative); Ketones Urine Trace mg/dL (Negative); Leukocyte Esterase Ur Negative LEU/UL (Negative); Nitrate Urine Negative (Negative); Protein Urine 1+ mg/dL (Negative); Specific Grav Ur >= 1.030 (1.001-1.035); Urobilinogen Urine 0.2 mg/dL (<2.0); pH Urine 5.5 (5.0-9.0)
[2022-06-25] MEDS: SODIUM CHLORIDE 0.9% IV 1,000 ML 999 ML IV CONT (01:05)
[2022-06-25] MEDS: PROMETHAZINE HCL 25 MG/ML AMPUL 12.5 MG IV PUSH (01:06)
[2022-06-25] MEDS: KETOROLAC 30 MG/ML VIAL (*BKC) IV PUSH (01:06)
[2022-06-25 01:11] LABS: Bacteria Urine Trace /hpf; Mucus Urine Heavy /lpf; Squamous Epithelial Cell Urine Many /hpf (Few)
[2022-06-25 01:12] LABS: Add Urine Microscopic? YES
[2022-06-25 01:27] LABS: Basophils Absolute Auto 0.1 K/mm3 (0.0-0.1); Basophils Percent Auto 0.5 % (0.2-1.2); Eosinophils Absolute Auto 0.2 K/mm3 (0-0.3); Eosinophils Percent Auto 1.6 % (0-4.4); Hematocrit 41.8 % (37.0-47.0); Hemoglobin 13.4 g/dL (12.0-15.0); Immature Granulocyte Absolute 0.02 K/mm3 (0.00-0.031); Immature Granulocyte Percent A 0.2 % (0-0.5); Lymphocytes Absolute Auto 4.31 K/mm3 (0.9-3.2); Lymphocytes Percent Auto 34.7 % (18.3-44.2); Mean Corpuscular HGB Conc 32.1 g/dl (32-36); Mean Corpuscular Hemoglobin 28.5 pg (26-34); Mean Corpuscular Volume 88.7 fl (80-100); Mean Platelet Volume 9.9 fl (7.4-10.4); Monocytes Absolute Auto 0.8 K/mm3 (0.1-0.6); Monocytes Percent Auto 6.4 % (2.6-8.5); Neutrophils Percent Auto 56.6 % (45.5-73.1); Platelet Count Result 318 k/mm3 (150-375); Red Blood Count 4.71 M/mm3 (4.2-5.4); Red Cell Distribution Width 13.2 % (11.5-14.5); White Blood Count 12.4 K/mm3 (4.5-10.0)
[2022-06-25] MEDS: MORPHINE SULFATE (*CRX) 2 MG/ML INJ IV PUSH (02:13)
[2022-06-25 02:26] LABS: Alanine Aminotransferase 17 U/L (6-35); Albumin Level 3.8 g/dL (3.5-5.1); Alkaline Phosphatase 100 U/L (38-126); Anion Gap 9 mmol/L (8-16); Aspartate Amino Transferase 22 U/L (14-36); Bilirubin,Total 0.5 mg/dL (0.2-1.3); Blood Urea Nitrogen 7 mg/dL (7-17); Carbon Dioxide 23 mmol/L (22-30); Chloride 109 mmol/L (98-107); Estimated CRCL calculation 87 ml/min; Estimated Glomerular Filt Rate > 60; Glucose 101 mg/dL (65-110); Potassium 2.9 mmol/L (3.4-5.0); Sodium 141 mmol/L (137-145)
[2022-06-25 02:33] LABS: Lipase < 10 U/L (23-300)
[2022-06-25] MEDS: POTASSIUM CHLORIDE 20 MEQ TABLET 40 MEQ PO (04:09)
--- NOTE | 2022-06-25 04:12 | PC.NURSE ---
RN went in to discharge pt. Pt unhappy with discharge. ERP and charge nurse made aware. Pt asking to speak with charge nurse. RN had to wake pt up from sleeping. When beginning to review instructions pt reports severe pain. RN explained close perscription moniroting of narcotics. Pt then states well then I should be admitted. RN explained that the patient must meet criteria according to physician to be admitted.
--- NOTE | 2022-06-25 04:21 | PC.NURSE ---
RN went into discharge pt after charge nurse spoke with pt.PT said to RN This is how you see black women. We are to strong and you think we can just manage our pain on our own but we cant and I will be just back. RN explained to pt that the Emergency Department addresses acute health concerns, and upon ruling out acute health issues, further complaints of chronic pain are managed in an outpatient setting. Pt asking who she should speak to about this negative experience. RN stated that administration and managment are avaliable M-F 7-4 with any concerns regarding her care. Pt then became more angry yelling how you going to do me like that RN explained this would be the best way to express any concerns she had over her care. PT refused to sign dc papers. RN then left the room. Pt then exited the room stopping at the charge desk stating You are doing this to me because I am a black woman. commercial mortgage broker then tried to calm pt down. Pt then left.
== END 2022-06-25 04:31 | disposition home or self-care (01) ==
PROVIDERS: Emergency Provider Emergency Medicine; PCP Internal Medicine Gastroenterology
DX: K86.1 Other chronic pancreatitis (principal); E87.6 Hypokalemia; E11.9 Type 2 diabetes mellitus without complications; F41.9 Anxiety disorder, unspecified; F32.A Depression, unspecified; Z86.718 Personal history of other venous thrombosis and embolism; Z86.711 Personal history of pulmonary embolism; Z90.710 Acquired absence of both cervix and uterus; F17.210 Nicotine dependence, cigarettes, uncomplicated
CPT/HCPCS: 36415; 74177; 80053; 81001; 83690; 85025; 96361; 96374; 96375; 99284; A9270; J1885; J2270; J2550; J7030; Q9967